=== PATIENT | male | born 1940 | race African-American/Black ===

== ENCOUNTER 2024-09-28 16:56 | Outpatient (CLI) | payer OTHER, SELFPAY ==
--- NOTE | ~2024-09-28 | US_ITS ---
EXAMINATION: US carotid duplex BI DATE: 09/28/2024 20:11 CDT INDICATION: History of stroke TECHNIQUE: Grayscale, color Doppler, and pulsed Doppler images of the cervical carotid arteries were obtained. The degree of vessel stenosis is placed in one of the following categories: normal, <50%, 50-69%, >=7 0% but less than near-occlusion, near-occlusion, or total occlusion. Note that percent stenosis relative to normal distal artery lumen diameter is indirectly measured fro m velocity measurements as described originally by Kulwant, et al. Radiology 2003; 229:340-346 and upda devonte by martínez Garcia al STROKE 2012;43(3);915-921. COMPARISON: 06/21/2016. FINDINGS: There is mild atherosclerosis of both carotid arteries. Peak systolic velocity (in cm/s) is detailed below RIGHT: Right common carotid artery (CCA): 60 cm/s. Right internal carotid artery (ICA) PSV: 57 cm/s. Right ICA end-diastolic velocity (EDV): 11 cm/s. Right ICA/CCA PSV ratio is 0.9. Right external carotid artery (ECA): 72cm/s. There is antegrade flow in the right vertebral artery. LEFT: Left common carotid artery (CCA): 54 cm/s. Left internal carotid artery (ICA) PSV: 105 cm/s. Left ICA end-diastolic velocity (EDV): 29 cm/s. Left ICA/CCA PSV ratio is 2. Left external carotid artery (ECA): 58cm/s. There is antegrade flow in the left vertebral artery. IMPRESSION: 1. Less than 50% stenosis in the right internal carotid artery. 2. 50-69% stenosis in the left internal carotid artery, an interval change from 2017 examination. Reviewed, dictated and finalized at location A.
--- OUTSIDE RECORDS SUMMARY | 2024-09-28 18:21 | XMS_ITS | Referral Summary ---
Author Organization [facility] at the [facility] Address [address] [place] [address] Care Team Providers Care Saxophone Player Name Role Phone Tai Valencia MD Unavailable [phone] London Bañuelos MD Unavailable [phone] Bessie Hwang MD Unavailable [phone] Rachid Keene MD Unavailable [phone] Debora Roman DO Primary Care Provider [phone] Kade Cortez MD Unavailable [phone] Allergies No known active allergies Medications aspirin 81 mg capsule Take 81 mg by mouth daily 8 Active atorvastatin (LIPITOR) 40 mg tablet Take 1 tablet (40 mg total) by mouth daily 1 Active cholecalciferol (VITAMIN D-3) 98336 unit tablet Take 1 capsule by mouth once a week 8 Active clopidogreL (PLAVIX) 75 mg tablet Take 1 tablet (75 mg total) by mouth daily [address] (CYMBALTA) 30 mg capsule Take 2 capsules (60 mg total) by mouth daily 1 Active ergocalciferol (VITAMIN D) 50,000 unit capsule Take 1 capsule (50,000 Units total) by mouth once a week 1 Active furosemide (LASIX) 40 mg tablet Take 1 tablet (40 mg total) by mouth 3 (three) times a week For 3 days take 80mg, there after 60mg 1 Active guaiFENesin (ROBITUSSIN) 400 mg tablet Take 1 tablet by mouth 3 (three) times a day Active HYDROcodone-acet aminophen (NORCO) 5-325 mg per tablet Take 1 tablet by mouth every 8 (eight) hours as needed 1 Active Lacto.acidophilu s-Bif.animalis 32 billion cell capsule Take 1 capsule by mouth daily Active meclizine (ANTIVERT) 25 mg tablet 1 Active melatonin 10 mg capsule 10 mg Active metoprolol XL (TOPROL-XL) 25 mg extended release tablet Take 1 tablet (25 mg total) by mouth daily 1 Active nitroglycerin (NITROSTAT) 0.4 mg SL tablet [address] (PROTONIX) 40 mg EC tablet Take by mouth 2 (two) times a day before breakfast and dinner 1 Active sennosides 25 mg tablet Take 2 tablets by mouth daily 8 Active sertraline (ZOLOFT) 100 mg tablet Take 1 tablet (100 mg total) by mouth daily 1 Active tamsulosin (FLOMAX) 0.4 mg extended release capsule 0.4 mg daily Active tolterodine LA (DETROL LA) 2 mg 24 hr capsule Take 1 capsule (2 mg total) by mouth daily 1 Active venlafaxine 150 mg tablet extended release 24hr 24 hr tablet 150 mg daily Active isosorbide mononitrate ER (IMDUR) 30 mg 24 hr tablet Take 1 tablet (30 mg total) by mouth every morning 2 Active Klor-Con M10 10 mEq CR tablet Take 1 tablet/capsule (10 mEq total) by mouth 2 Active QUEtiapine (SEROquel) 25 mg tablet Take 2 tablets (50 mg total) by mouth nightly 2 Active aspirin 81 mg enteric coated tablet Take 1 tablet (81 mg total) by mouth daily Active memantine (NAMENDA) 10 mg tablet Take 0.5 tablets (5 mg total) by mouth daily 3 Active albuterol HFA (PROVENTIL HFA,VENTOLIN HFA,PROAIR HFA) 90 mcg/actuation inhaler Inhale 2 puffs every 6 (six) hours as needed for wheezing Active Active Problems Problem Noted Date Diagnosed Date Hallucinations 05/12/2023 Obesity with body mass index 30 or greater 05/12 Rib pain 05/12/2023 Dementia with behavioral disturbance 09/09/2022 Generalized abdominal pain 01/28/2022 Atherosclerosis of [place] of both lower extremities with intermittent claudication 11/14/2021 Assessment & Plan (05/29/2023 2:22 PM FOUNTAIN BRUSH ASSEMBLER): Lower extremity edema has significantly improved with Tubigrip. Given a prescription for compression stockings 15-20 mmhg. Ulceration is mostly healed. Continue triple antibiotic ointment to the site and small bandage. Continue utilizing compression therapy. Arterial Doppler study is normal. Patient does not have any ischemic rest pain or claudication symptoms. Lower extremities are warm well perfused with palpable distal pulses. Plan: Continue utilizing compression therapy. Continue to follow-up with Podiatry as needed. Can follow-up with the vascular as needed. Assessment & Plan (05/14/2023 3:39 PM FOUNTAIN BRUSH ASSEMBLER): Patient continues to have paresthesia to bilateral feet right worse than the left along with 2+ pitting edema again right worse than the left. Does have evidence of chronic venous hypertension and chronic edema with hyperpigmentation to the right leg, blister to the right lateral calf and venous congestion noted to the foot. Blister unroofed dressing applied with Xeroform and gauze. Plan: Continue daily dressing changes with Xeroform gauze and use Tubigrip and Zeke wrap to both legs for compression. Follow-up in 2 weeks for a wound check as well as obtain an updated lower extremity arterial Doppler. Assessment & Plan (11/14/2021 3:06 PM CDT): Patient has developed symptoms consistent with disabling claudication and early ischemic rest pain right lower extremity. This been ongoing for greater than 4 months. I have recommended repeat arterial Doppler study follow-up 1 week. Continue exercise and ongoing risk factor modification. Deficiency of macronutrients 11/08/2021 Chronic constipation 11/07/2021 Impaired fasting glucose 11/07/2021 Moderately severe depression 11/07/2021 Spinal stenosis of lumbar region 11/07/2021 Chest pain 11/02/2021 POPE (dyspnea on exertion) 11/02/2021 Internal carotid artery stenosis 07/19/2021 Atherosclerosis of aorta 04/02/2021 Carcinoma of prostate 04/02/2021 Cervical radiculopathy 04/02/2021 Chronic diastolic heart failure 04/02/2021 Chronic obstructive pulmonary disease, unspecifi ed 04/02/2021 CVA, old, hemiparesis 04/02/2021 Hypertensive heart and chron ic kidney disease without heart failure, with stage 1 through stage 4 chronic kidney disease, or unspecified chronic kidney disease 04/02/2021 Hypertensive heart disease with congestive heart failure 04/02/2021 Postural dizziness 04/02/2021 Secondary hyperparathyroidism 04/02/2021 Vitamin D deficiency 04/02/2021 Prostate cancer 03/26/2021 Cancer Staging:Clinical stage from 02/14/2015:Stage IIC(cT1c, cN0, cM0, PSA: 5.3, Grade Group: 3) - Signed by Kade Cortez MD on 03/26/2021 Left flank pain 01/09/2021 MDD (major depressive disorder), recurrent episo de, severe 01/09/2021 Renal cyst 01/09/2021 Recurrent falls 09/14/2020 Other secondary pulmonary hypertension Memory impairment 05/09/2020 Dyslipidemia 12/22/2019 Assessment & Plan (11/14/2021 2:54 PM CDT): Dyslipidemia chronic and controlled. Continue statin therapy. Hemiplegia affecting left nondominant side 06/21 RBBB (right bundle branch block) 06/11/2019 Sinus tachycardia 06/11/2019 Abnormal EKG 03/10/2018 Abnormal gait 03/10/2018 Antiplatelet or antithrombotic long-term use 07/2017 Centrilobular emphysema 03/10/2018 Class 2 obesity due to exces s calories without serious comorbidity with body mass index (BMI) of 35.0 to 35.9 in adult 03/10/2018 Essential hypertension 03/10/2018 Assessment & Plan (11/14/2021 2:54 PM CDT): Hypertension chronic and controlled. Continue current medical management. Former smoker 03/10/2018 History of falling 03/10/2018 On statin therapy 03/10/2018 Use of cane as ambulatory aid 03/10/2018 Increased frequency of urination 08/20/2016 Benign prostatic hyperplasia 10/01/2012 Hyperlipidemia 10/01/2012 Orthostatic hypotension 10/01/2012 Retinal detachment 10/01/2012 Immunizations Immunization Administration Dates Next Due Influenza, Quadrivalent, Split, Intramuscular ,05/18/2015 Influenza, Quadrivalent, Spl it, Preservative Free, Intramuscular 05/19/2014 Influenza, Split 03/04/2013 Influenza, Trivalent, High D ose, Split, Preservative Free, Intramuscular 02/23/2020,07/20/2019 Influenza, Unspecified 02/23/2020 Moderna SARS-CoV-2 Monovalent Vaccination (12+ Y RS) 01/04/2022,04/13/2021 Pneumococcal Conjugate PCV 13 05/18/2015, 014 Pneumococcal Polysaccharide PPV23 03/26/2016 ZOSTER LIVE 07/05/2015 ZOSTER Recombinant 04/18/2023,02/04/2023 Social History Tobacco Use Types Packs/Day Years Used Date Smoking Tobacco: Former Tobacco Cessation:Counseling Given: Not Answered Personal Safety Answer Date Recorded Getting School Help Needed Not on file 08/12 Sex and Gender Information Value Date Recorded Sex Assigned at Not on file Legal Sex Male 7:42 PM FOUNTAIN BRUSH ASSEMBLER Gender Identity Not on file Sexual Orientation Not on file Last Filed Vital Signs Vital Sign Reading Time Taken Comments Blood Pressure 144/73 03/24/2024 2:13 PM CDT Pulse 73 03/24/2024 2:13 PM CDT Temperature 36.5 C (97.7 F) 06/30/2022 3:45 PM FOUNTAIN BRUSH ASSEMBLER Respiratory Rate 18 06/30/2022 7:00 PM FOUNTAIN BRUSH ASSEMBLER Oxygen Saturation 100% 03/24/2024 2:13 PM CDT Inhaled Oxygen Concentration - - Weight 81.6 kg (180 lb) 05/28/2023 2:56 PM FOUNTAIN BRUSH ASSEMBLER Height 167.6 cm (5' 6 ) 05/28/2023 2:56 PM FOUNTAIN BRUSH ASSEMBLER Body Mass Index 29.05 05/28/2023 2:56 PM FOUNTAIN BRUSH ASSEMBLER Plan of Treatment Not on file Insurance [facility] Care Teams Saxophone Player Relationship Specialty Start Date End Date Debora Roman DO [address] [place] [address] PCP - General Internal Medicine 04/16/23 Tai Valencia MD [address] [address] Cardiovascular Disease 03/26/21 London Bañuelos MD [address] [address] Neurology 03/26/21 Bessie Hwang MD [address] [address] Gastroenterology 03/26/21 Rachid Keene MD [address] [place] [address] Consulting Physician Urology 03/26/21 Kade Cortez MD [address] [place] [address] Radiation Oncologist Radiation Oncology 02/03/24
--- OUTSIDE RECORDS SUMMARY | 2024-09-28 18:21 | XMS_ITS | Clinical Summary ---
Author Organization [facility] at the [facility] Address [address] [place] [address] Care Team Providers Care Metal Mockup Maker Name Role Phone Tai Valencia MD Unavailable [phone] London Bañuelos MD Unavailable [phone] Bessie Hwang MD Unavailable [phone] Rachid Keene MD Unavailable [phone] Debora Roman DO Primary Care Provider [phone] Kade Cortez MD Unavailable [phone] Allergies No known active allergies Medications aspirin 81 mg capsule Take 81 mg by mouth daily 8 Active atorvastatin (LIPITOR) 40 mg tablet Take 1 tablet (40 mg total) by mouth daily 1 Active cholecalciferol (VITAMIN D-3) 83765 unit tablet Take 1 capsule by mouth [...] 09/09/2022 Generalized abdominal pain 01/28/2022 Atherosclerosis of [place] ar kate of both lower extremities with intermittent claudication 11/14/2021 Assessment & Plan (05/29/2023 2:22 PM CURRICULUM SPECIALIST): Lower extremity edema has significantly improved with [...] needed. Assessment & Plan (05/14/2023 3:39 PM CURRICULUM SPECIALIST): Patient continues to have paresthesia to bilateral [...] 03/26/2016 ZOSTER LIVE 07/05/2015 ZOSTER Recombinant 04/18/2023,02/04/2023 Surgical History Surgery Date Site/Laterality Comments APPENDECTOMY PROSTATE SURGERY UroLift Medical History Medical History Date Comments HTN (hypertension) Dyslipidemia Hyperlipidemia Heart disease CKD (chronic kidney disease) Secondary hyperparathyroidism Vitamin D deficiency Prostate cancer (HCC) Depression COPD (chronic obstructive pulmonary disease) (HC C) Chronic diastolic heart failure (HCC) Family History Medical History Relation Name Comments Heart attack Father Prostate cancer Father Stroke Father Stroke Mother Relation Name Status Comments Father Mother Social History Tobacco Use Types Packs/Day Years Used Date Smoking Tobacco: Former Tobacco Cessation:Counseling Given: Not Answered Personal Safety Answer Date Recorded Getting School Help Needed Not on file 08/12 Sex and Gender Information Value Date Recorded Sex Assigned at Not on file Legal Sex Male 7:42 PM CURRICULUM SPECIALIST Gender Identity Not on file Sexual Orientation Not on file Obstetrics History Last Filed Vital Signs Vital Sign Reading Time Taken Comments Blood Pressure 144/73 03/24/2024 2:13 PM CDT Pulse 73 03/24/2024 2:13 PM CDT Temperature 36.5 C (97.7 F) 06/30/2022 3:45 PM CURRICULUM SPECIALIST Respiratory Rate 18 06/30/2022 7:00 PM CURRICULUM SPECIALIST Oxygen Saturation 100% 03/24/2024 2:13 PM CDT Inhaled Oxygen Concentration - - Weight 81.6 kg (180 lb) 05/28/2023 2:56 PM CURRICULUM SPECIALIST Height 167.6 cm (5' 6 ) 05/28/2023 2:56 PM CURRICULUM SPECIALIST Body Mass Index 29.05 05/28/2023 2:56 PM CURRICULUM SPECIALIST Plan of Treatment Health Maintenance Due Date Last Done Comments Depression Screening 1938 Fall Risk Assessment 1940 DTaP/Tdap/Td Vaccine (1 - Tdap) 1949 Hepatitis B Screening 1956 Well Visit 65+ 10/26/2003 Covid-19 Vaccine (2023-2 5 season) 2024 01/04/2022, 04/13/2021, 08/11/2020, Additional history exists Influenza Vaccine (#1) 2024 0, 02/23/2020, 07/20/2019, Additional history exists Pneumococcal vaccine 65+ Completed 016, 05/18/2015, 05/19/2014 Zoster Vaccine Completed 04/18/2023, 01/08, 07/05/2015 Insurance [facility] Care Teams Metal Mockup Maker Relationship Specialty Start Date End Date Debora Roman DO [address] [place] [address] PCP - General Internal Medicine 04/16/23 Tai Valencia MD [address] [address] Cardiovascular Disease 03/26/21 London Bañuelos MD [address] [place] [id number] Neurology 03/26/21 Bessie Hwang MD [address] [place] [address] Gastroenterology 03/26/21 Rachid Keene MD [address] [place] [address] Consulting Physician Urology 03/26/21 Kade Cortez MD [address] [place] [address] Radiation Oncologist Radiation Oncology 02/03/24
--- OUTSIDE RECORDS SUMMARY | 2024-09-28 18:22 | XMS_ITS | Encounter Summary ---
Author Organization [facility] Address [facility] [place] [address] Care Team Providers Care Furniture Sprayer Name Role Phone Debora Roman DO Primary Care Provider [phone] Mono Miller MD Unavailable [phone] Tai Valencia MD Unavailable [phone] Encounter Details Date Type Department Care Team (Late Contact Info) Description 03/24/2018 Abstract [facility] at [address] [phone] Willow Valencia MA Social History Tobacco Use Types Packs/Day Years Used Date Smoking Tobacco: Former Cigarettes Q uit: 06/2016 Smokeless Tobacco: Never Alcohol Use Standard Drinks/Week Comments No 0 (1 standard drink = 0.6 oz pur e alcohol) AUDIT-C Answer Date Recorded Frequency of Alcohol Consumption Never 03/09/2018 Average Number of Drinks Not on file 018 Frequency of Binge Drinking Not on file 06/2017 Sex and Gender Information Value Date Recorded Sex Assigned at Male 08/18/2024 1:59 PM CDT Legal Sex Male 4:09 PM CDT Gender Identity Not on file Sexual Orientation Not on file 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 Not on file Not on file documented as of this encounter Plan of Treatment Upcoming Encounters Date Type Department Care Team (Late Contact Info) Description 05/23/2025 2:00 PM WATERSHED ENGINEER Office Visit [facility], [address] [address] Brandi Ignacio, PERSONAL PROPERTY ASSESSOR [address] [place] [address] documented as of this encounter Procedures Procedure Name Priority Date/Time Associated Diagnosis Comments COMPREHENSIVE METABOLIC PANEL Routine 07/20/2024 LIPID PANEL Routine 07/20/2024 HEMOGLOBIN, GLYCOSYLATED Routine 07/20/2024 THYROID STIM HORMONE TSH Routine 07/20/2024 HEMOGLOBIN, GLYCOSYLATED Routine 12/15/2023 COMPREHENSIVE METABOLIC PANEL Routine 12/15/2023 CBC, MANUAL DIFF Routine 12/15/2023 THYROID STIM HORMONE TSH Routine 12/15/2023 CK (CPK) Routine 12/15/2023 BASIC METABOLIC PANEL Routine 05/21/2023 BASIC METABOLIC PANEL Routine 05/14/2023 PRO-BRAIN NATRIURETIC PEPTIDE Routine 03/17/2023 COMPREHENSIVE METABOLIC PANEL Routine 03/17/2023 CBC, MANUAL DIFF Routine 03/17/2023 HEMOGLOBIN, GLYCOSYLATED Routine 01/28/2022 COMPREHENSIVE METABOLIC PANEL Routine 01/28/2022 LIPID PANEL Routine 01/28/2022 CBC, MANUAL DIFF Routine 01/28/2022 THYROID STIM HORMONE TSH Routine 01/28/2022 CBC (OUTSIDE LAB) Routine 08/28/2017 COMPREHENSIVE METABOLIC PANEL Routine 08/28/2017 LIPID PANEL Routine 08/28/2017 documented in this encounter Results * COMPREHENSIVE METABOLIC PANEL (07/20/2024) SODIUM S/P/B 141 POTASSIUM S/P/B 5.1 CO2 25 CHLORIDE S/P/B 108 GLUCOSE 94 mg/dL CALCIUM S/P/B 9.8 BUN 16 CREATININE S/P/B 1.18 0.7 - 1.3 GFR ESTIMATE 60 ALKALINE PHOSPHATASE S/P/B 61 ALT 53 AST 60 BILIRUBIN TOTAL S/P/B 0.6 ALBUMIN S/P/B 4.6 3.5 - 5.0 TOTAL PROTEIN S/P/B 7.5 GLOBULIN 2.9 07/20/2024 Default History Genericprovider LABORATORY Edited Result - Final * HEMOGLOBIN, GLYCOSYLATED (07/20/2024) HGB A1C 5.9 % 07/20/2024 Default History Genericprovider LABORATORY Edited Result - Final * LIPID PANEL (07/20/2024) CHOLESTEROL 131 HDL 42 TRIGLYCERIDES 159 LDL (CALCULATED) 57 07/20/2024 Default History Genericprovider LABORATORY Edited Result - Final * THYROID STIM HORMONE TSH (07/20/2024) TSH 1.64 Default History Genericprovider LABORATORY Final Result * THYROID STIM HORMONE TSH (12/15/2023) TSH 1.81 Default History Genericprovider LABORATORY Edited Result - Final * CK (CPK) (12/15/2023) CPK 67 12/15/2023 Default History Genericprovider LABORATORY Final Result * COMPREHENSIVE METABOLIC PANEL (12/15/2023) SODIUM S/P/B 139 GLUCOSE 91 mg/dL BUN 19 CREATININE S/P/B 1.04 0.7 - 1.3 CALCIUM S/P/B 10.0 CHLORIDE S/P/B 109 GFR ESTIMATE 70 Critical access hospital Genericprovider LABORATORY Edited Result - Final * CBC, MANUAL DIFF (12/15/2023) WBC 9.73 HGB 15.7 HCT 51.6 PLT 208 Critical access hospital Genericprovider LABORATORY Edited Result - Final * HEMOGLOBIN, GLYCOSYLATED (12/15/2023) Pathologist [facility] HGB A1C 6.7 % Critical access hospital Genericprovider LABORATORY Edited Result - Final * BASIC METABOLIC PANEL (05/21/2023) SODIUM S/P/B 142 POTASSIUM S/P/B 3.5 CO2 22 CHLORIDE S/P/B 106 GLUCOSE 117 mg/dL CALCIUM S/P/B 8.5 BUN 11 CREATININE S/P/B 0.97 0.7 - 1.3 EGFR NON-AFR. AMER. 77 <=90 05/21/2023 Default History Genericprovider LABORATORY Final Result * BASIC METABOLIC PANEL (05/14/2023) SODIUM S/P/B 140 POTASSIUM S/P/B 3.5 CO2 24 CHLORIDE S/P/B 102 GLUCOSE 100 mg/dL CALCIUM S/P/B 9.5 BUN 11 CREATININE S/P/B 1.0 0.7 - 1.3 EGFR AFR. AMER. 74 <=90 05/14/2023 Default History Genericprovider LABORATORY Final Result * COMPREHENSIVE METABOLIC PANEL (03/17/2023) SODIUM S/P/B 143 GLUCOSE 102 mg/dL AST 61 BUN 15 CREATININE S/P/B 1.11 0.7 - 1.3 CALCIUM S/P/B 10.1 POTASSIUM S/P/B 4.0 CHLORIDE S/P/B 102 ALT 59 GFR ESTIMATE 65 Narrative Resulting Agency Comment Critical access hospital Genericprovider LABORATORY Edited Result - Final * PRO-BRAIN NATRIURETIC PEPTIDE (03/17/2023) Pathologist [facility] PRO-B TYPE NATRIURETIC PEPTIDE 5,920 Narrative Resulting Agency Comment Result [facility] Genericprovider LABORATORY Edited Result - Final * CBC, MANUAL DIFF (03/17/2023) Pathologist [facility] WBC 8.89 HGB 16.6 HCT 56.2 PLT 226 Narrative Resulting Agency Comment Critical access hospital Genericprovider LABORATORY Edited Result - Final * COMPREHENSIVE METABOLIC PANEL (01/28/2022) Pathologist [facility] SODIUM S/P/B 139 GLUCOSE 88 mg/dL AST 43 BUN 14 CREATININE S/P/B 1.05 0.7 - 1.3 CALCIUM S/P/B 10.1 POTASSIUM S/P/B 4.0 CHLORIDE S/P/B 101 ALT 27 GFR ESTIMATE 70 Default History Genericprovider LABORATORY Final Result * LIPID PANEL (01/28/2022) Pathologist [facility] CHOLESTEROL 137 TRIGLYCERIDES 160 HDL 38 LDL (CALCULATED) 67 Default History Genericprovider LABORATORY Final Result * CBC, MANUAL DIFF (01/28/2022) Pathologist [facility] WBC 7.99 HGB 15.4 HCT 49.5 PLT 247 Default History Genericprovider LABORATORY Final Result * HEMOGLOBIN, GLYCOSYLATED (01/28/2022) Pathologist [facility] HGB A1C 8.1 % us Default History Genericprovider LABORATORY Final Result * THYROID STIM HORMONE TSH (01/28/2022) [facility] TSH 2.13 us Default History Genericprovider LABORATORY Final Result * LIPID PANEL (08/28/2017) [facility] CHOLESTEROL 117 HDL 31 TRIGLYCERIDES 125 LDL (CALCULATED) 61 08/28/2017 us Doc [facility] LABORATORY Final Result * (ABNORMAL) COMPREHENSIVE METABOLIC PANEL (08/28/2017) [facility] SODIUM S/P/B 142 POTASSIUM S/P/B 3.9 CO2 24 CHLORIDE S/P/B 105 GLUCOSE 102 mg/dL CALCIUM S/P/B 9.0 BUN 14 CREATININE S/P/B 1.5(A) 0.7 - 1.3 EGFR NON-AFR. AMER. 58 <=90 ALKALINE PHOSPHATASE S/P/B 63 ALT 29 AST 23 BILIRUBIN TOTAL S/P/B 0.3 ALBUMIN S/P/B 4.2 3.5 - 5.0 TOTAL PROTEIN S/P/B 6.6 08/28/2017 us Doc [facility]ORAT[facility] Final Result * CBC (OUTSIDE LAB) (08/28/2017) [facility] WBC 7.4 HGB 13.9 HCT 42.2 PLT 214 08/28/2017 us Doc [facility] LAB-OUTSIDE/ABSTRACTED Final Result documented in this encounter Visit Diagnoses Not on filedocumented in this encounter Care Teams Furniture Sprayer Relationship Specialty Start Date End Date Debora Roman DO [address] [place] [address] PCP - General INTERNAL MEDICINE 02/18/18 Mono Miller MD [address] [place] [id number] [facility] CARDIOVASCULAR DISEASE 02/26/18 03/30/19 Tai Valencia MD Three [facility]. [address] [place] [address] [facility] [employer] CARDIOVASCULAR DISEASE 06/09/19 documented as of this encounter
--- OUTSIDE RECORDS SUMMARY | 2024-09-28 18:22 | XMS_ITS | Continuity of Care Document ---
Author Organization [facility] Address [address] [place] [address] Phone Care Team Providers Care Assistive Technology Specialist Name Role Phone Debora Roman DO Unavailable Unavailable Allergies, Adverse Reactions, Alerts Substance Reaction Status Criticality No Known Drug Allergies Other Active No I nformation Medications Medication Instructions Dosage Effective Dates (start - stop) Status Comments hydrocodone 5 mg-acetaminophen 325 mg tablet take 1 tablet every 8 hours as needed - Active M48.[address] 30 MG CAP TAKE 2 CAPSULES BY MOUTH EVERY DAY - Active donepezil 5 mg tablet take 1 tablet by oral route every day in the evening 5 MG - Active Gemtesa 75 mg tablet take 1 tablet by oral route every day 75 MG - Active furosemide 20 mg tablet take 1 tablet by oral route every day 20 MG - Active potassium chloride ER 20 mEq tablet,extended release(part/cryst) take 1 tablet by oral route 2 times every day with food 20 MEQ - Active metoprolol succinate ER 25 mg tablet,extended release 24 hr TAKE 1 TABLET BY MOUTH EVERY DAY at bedtime - Active PANTOPRAZOLE SOD DR 40 MG TAB TAKE 1 TABLET TWICE A DAY BEFORE MEALS - Active ATORVASTATIN 40 MG TABLET TAKE 1 TABLET BY MOUTH EVERY DAY - Active SERTRALINE HCL 100 MG TABLET TAKE 1 TABLET BY MOUTH EVERY DAY - Active VITAMIN D2 1.25MG(50,000 UNIT) TAKE 1 CAPSULE BY MOUTH ONCE PER WEEK - Active QUETIAPINE FUMARATE 25 MG TAB TAKE 1-2 TABLETS BY MOUTH EVERY 8 HOURS NEEDED FOR AGITATION OR SLEEP - Active memantine 10 mg tablet take 1/2 tablet by oral route daily - Active nitroglycerin 0.[address] 1 tablet by sublingual route at 1st sign of attack; may repeat every 5 minutes up to 3 tabs; if norelief seek medical help 0.4 MG - Active Aspirin Low Dose 81 mg tablet,delayed release take 1 tablet by oral route every day 81 MG - Active clopidogrel 75 mg tablet take 1 tablet by oral route every day 75 MG - Active ProAir HFA 90 mcg/actuation aerosol inhaler inhale 2 puff by inhalation route every 4 - 6 hours as needed - Active Mucinex DM 30 mg-600 mg tablet,extended release 12 hr take 1 tablet by oral route every 12 hours as needed as needed for congestion 1.00 tablet - Active Probiotic 10 billion cell capsule spray 1 Capsule by Oral route every day 1 Capsule - Active Laxative (sennosides) 25 mg tablet take 1 tablet by oral route 2 times every day as needed 25 MG - Active Procedures Procedure Date ROUTINE VENIPUNCTURE AR OFFICE [id number] BODY MASS INDEX DOCD SYST BP GE 130 - 139MM HG DIAST BP 80-89 MM HG COMPREHEN METABOLIC PANEL CMP HEMOGLOBIN A1C HGA1C, GLYCO LIPID PANEL MICROALBUMIN, QN (URINE) CREATININE, (U-R) PARATHYROID HORMONE (PTH) THYROID STIMULATION HORMONE(TSH) 2024 URINALYSIS, REFLEX (UA) CBC, INC PLATELETS AND DIFFERENTIAL COMPREHEN METABOLIC PANEL CMP HEMOGLOBIN A1C HGA1C, GLYCO LIPID PANEL Admin influenza virus vac FLU VACC PRSV FREE INC ANTIG PNEUMOVAX ADM MEDICARE Pneumococcal Conjugate Vaccine (PCV20) S ROUTINE VENIPUNCTURE AR OFFICE [id number] BODY MASS INDEX DOCD SYST BP LT 130 MM HG DIAST BP < 80 MM HG BASIC METABOLIC PANEL(BMP) ROUTINE VENIPUNCTURE AR COMPREHEN METABOLIC PANEL CMP ROUTINE VENIPUNCTURE AR CBC, INC PLATELETS AND DIFFERENTIAL COMPREHEN METABOLIC PANEL CMP CREATINE KINASE, TOTAL (CPK,CK) 024 HEMOGLOBIN A1C HGA1C, GLYCO THYROID STIMULATION HORMONE(TSH) 2023 ROUTINE VENIPUNCTURE AR OFFICE [id number]-[id number] BODY MASS INDEX DOCD SYST BP LT 130 MM HG DIAST BP < 80 MM HG Pt inelig neg scrn depres OFFICE KZNRI-MRK-YAKFMWFF BODY MASS INDEX DOCD SYST BP LT 130 MM HG DIAST BP < 80 MM HG COMPREHEN METABOLIC PANEL CMP 3 Kept Appointment No Charge Encounter Mar ROUTINE VENIPUNCTURE AR CBC, INC PLATELETS AND DIFFERENTIAL COMPREHEN METABOLIC PANEL CMP 3 BRAIN NATRIURETIC PEPTIDE (BNP) 023 ROUTINE VENIPUNCTURE AR OFFICE [id number] BODY MASS INDEX DOCD SYST BP GE 130 - 139MM HG DIAST BP < 80 MM HG CBC, INC PLATELETS AND DIFFERENTIAL COMPREHEN METABOLIC PANEL CMP 3 HEMOGLOBIN A1C HGA1C, GLYCO BRAIN NATRIURETIC PEPTIDE (BNP) 023 THYROID STIMULATION HORMONE(TSH) 2022 Admin influenza virus vac FLU VACC PRSV FREE INC ANTIG ROUTINE VENIPUNCTURE IL OFFICE [id number]-XHH-[id number] BODY MASS INDEX DOCD SYST BP LT 130 MM HG DIAST BP 80-89 MM HG Pt inelig neg scrn depres OFFICE VPWJY-RPV-CDNOAXKA BODY MASS INDEX DOCD SYST BP LT 130 MM HG DIAST BP < 80 MM HG CBC, INC PLATELETS AND DIFFERENTIAL COMPREHEN METABOLIC PANEL [facility] 3 HEMOGLOBIN A1C HGA1C, GLYCO PARATHYROID HORMONE (PTH) THYROID STIMULATION HORMONE(TSH) 2022 VITAMIN B12 (SERUM) VITAMIN D, 25-HYDROXY Depression screen annual Clin depression screen doc ROUTINE VENIPUNCTURE [place] OFFICE MCUPO-LQR-EEUCSNVO BODY MASS INDEX DOCD SYST BP LT 130 MM HG DIAST BP < 80 MM HG TELEPHONE E&M SERVICE BY A PHYSICIAN;5-1 0 MINUTES OF MEDICAL DISCUSSION X-RAY EXAM OF RIBS, UNILATERAL, 2 VIEWS OFFICE JWSED-TYN-UPAMFCMA BODY MASS INDEX DOCD SYST BP LT 130 MM HG DIAST BP < 80 MM HG Tubular Dressing Size F MOUTHPIECE INHALATION TREATMENT/THERAPY SPIROMETRY BEFORE & AFTER BRONCHODIALATO R ALBUTEROL 2.5 MG AND IPRATROPIUM BROMIDE .5 MG FORM CHARGE AMYLASE CBC, INC PLATELETS AND DIFFERENTIAL COMPREHEN METABOLIC PANEL CMP CREATINE KINASE, TOTAL (CPK,CK) 022 HEMOGLOBIN A1C HGA1C, GLYCO LIPASE LIPID PANEL RBC SED RATE, AUTOMATED THYROID STIMULATION HORMONE(TSH) 2021 ROUTINE VENIPUNCTURE OFFICE [id number]-IGH-[id number] BODY MASS INDEX DOCD SYST BP LT 130 MM HG DIAST BP 80-89 MM HG FALL RISK ASSESSMENT DOC'D PRES/ABSN URINE INCON ASSESS OFFICE PXHUF-EJA-[id number] BODY MASS INDEX DOCD SYST BP GE 130 - 139MM HG DIAST BP 80-89 MM HG Depression screen annual Clin depression screen doc Brief Emotional/Behavioral A ssessment, With Scoring/Doct, Per St[employer] Instrument CBC, INC PLATELETS AND DIFFERENTIAL COMPREHEN METABOLIC PANEL CMP THYROID STIMULATION HORMONE(TSH) 2021 ROUTINE VENIPUNCTURE OFFICE OJCYO-CUM-NUDNEGUA BODY MASS INDEX DOCD SYST BP LT 130 MM HG DIAST BP < 80 MM HG FORM CHARGE CBC, INC PLATELETS AND DIFFERENTIAL COMPREHEN METABOLIC PANEL CMP 2 LIPID PANEL PARATHYROID HORMONE (PTH) THYROID STIMULATION HORMONE(TSH) 2021 VITAMIN B12 (SERUM) VITAMIN D, 25-HYDROXY ROUTINE VENIPUNCTURE Depression screen annual Clin depression screen doc URINALYSIS W MICROSCOPIC (UA) 2 OFFICE JQNKV-PYH-MYILJHCK BODY MASS INDEX DOCD SYST BP GE 130 - 139MM HG DIAST BP < 80 MM HG URINALYSIS, REFLEX (UA) OFFICE IMXAX-HCT-KIXKJUMX BODY MASS INDEX DOCD SYST BP GE 130 - 139MM HG DIAST BP < 80 MM HG FALL RISK ASSESSMENT DOC'D PRES/ABSN URINE INCON ASSESS Depression screen annual Clin depression screen doc Brief Emotional/Behavioral A ssessment, With Scoring/Doct, [facility] CBC, INC PLATELETS AND DIFFERENTIAL COMPREHEN METABOLIC PANEL [facility] 1 CREATINE KINASE, TOTAL (CPK,CK) 021 RBC SED RATE, AUTOMATED THYROID STIMULATION HORMONE(TSH) 2020 ROUTINE VENIPUNCTURE OFFICE [id number]-MLX-[id number] BODY MASS INDEX [facility] SYST BP LT 130 MM HG DIAST BP < 80 MM HG X-RAY EXAM OF RIBS, UNILATERAL, 2 VIEWS OFFICE FXOIG-RBA-NSOKKRM OFFICE MWHVB-CAM-AYTCPEDJ BODY MASS INDEX [facility] SYST BP LT 130 MM HG DIAST BP < 80 MM HG X-RAY EXAM OF KNEE, A/P & LAT X-RAY EXAM OF LUMBAR SPINE, A/P & LAT Ap X-RAY EXAM OF THORACIC SPINE, A/P AND LA T COMPREHEN METABOLIC PANEL [facility] 1 CREATINE KINASE, TOTAL (CPK,CK) 021 ROUTINE VENIPUNCTURE Depression screen annual Clin depression screen doc CBC, INC PLATELETS AND DIFFERENTIAL COMPREHEN METABOLIC PANEL CMP CREATINE KINASE, TOTAL (CPK,CK) 021 HEMOGLOBIN A1C HGA1C, GLYCO LIPID PANEL PARATHYROID HORMONE (PTH) RBC SED RATE, AUTOMATED THYROID STIMULATION HORMONE(TSH) 2020 VITAMIN D, 25-HYDROXY ROUTINE VENIPUNCTURE OFFICE QJPNE-ODM-[id number] BODY MASS INDEX DOCD SYST BP LT 130 MM HG DIAST BP < 80 MM HG Pt inelig neg scrn depres CBC, INC PLATELETS AND DIFFERENTIAL COMPREHEN METABOLIC PANEL CMP 0 LIPID PANEL THYROID STIMULATION HORMONE(TSH) 2019 URINALYSIS, REFLEX (UA) VITAMIN B12 (SERUM) ROUTINE VENIPUNCTURE OFFICE DGCPI-SKX-[id number] BODY MASS INDEX DOCD SYST BP GE 130 - 139MM HG DIAST BP < 80 MM HG CBC, INC PLATELETS AND DIFFERENTIAL COMPREHEN METABOLIC PANEL CMP 0 ROUTINE VENIPUNCTURE Admin influenza virus vac FLU VACC PRSV FREE INC ANTIG HEMOGLOBIN A1C HGA1C, GLYCO OFFICE ZPEHS-THR-TEEQQNQC BODY MASS INDEX DOCD SYST BP LT 130 MM HG DIAST BP < 80 MM HG Depression screen annual Clin depression screen doc CBC, INC PLATELETS AND DIFFERENTIAL COMPREHEN METABOLIC PANEL CMP 0 CREATINE KINASE, TOTAL (CPK,CK) 020 LIPID PANEL THYROID STIMULATION HORMONE(TSH) 2019 ROUTINE VENIPUNCTURE OFFICE WIBPI-ZBM-RLOLUNGZ BODY MASS INDEX DOCD SYST BP GE 130 - 139MM HG DIAST BP 80-89 MM HG Chest Xray, 2 Views FALL RISK ASSESSMENT DOC'D PRES/ABSN URINE INCON ASSESS Chest Xray, 2 Views CBC, INC PLATELETS AND DIFFERENTIAL COMPREHEN METABOLIC PANEL CMP 0 THYROID STIMULATION HORMONE(TSH) 2019 ROUTINE VENIPUNCTURE Pt inelig neg scrn depres OFFICE TOCQU-OZV-ELEAKPFB BODY MASS INDEX DOCD SYST BP GE 130 - 139MM HG DIAST BP < 80 MM HG OFFICE [id number]-[id number]-[id number] BODY MASS INDEX DOCD SYST BP LT 130 MM HG DIAST BP < 80 MM HG Chest Xray, 2 Views FALL PLAN OF CARE DOC'D URINE INCON PLAN DOC'D PRES/ABSN URINE INCON ASSESS Depression screen annual Clin depression screen doc CBC, INC PLATELETS AND DIFFERENTIAL COMPREHEN METABOLIC PANEL CMP 0 CREATINE KINASE, TOTAL (CPK,CK) 020 LIPID PANEL PARATHYROID HORMONE (PTH) THYROID STIMULATION HORMONE(TSH) 2019 VITAMIN D, 25-HYDROXY ROUTINE VENIPUNCTURE OFFICE SGACC-CHE-PNUMNILI BODY MASS INDEX DOCD SYST BP GE 130 - 139MM HG DIAST BP < 80 MM HG Chest Xray, 2 Views AMYLASE CBC, INC PLATELETS AND DIFFERENTIAL COMPREHEN METABOLIC PANEL CMP 9 LIPASE LIPID PANEL PARATHYROID HORMONE (PTH) THYROID STIMULATION HORMONE(TSH) 2018 URINALYSIS, REFLEX (UA) VITAMIN D, 25-HYDROXY ROUTINE VENIPUNCTURE HEMOGLOBIN A1C HGA1C, GLYCO OFFICE NBCPG-RPI-SNBRAYWB BODY MASS INDEX DOCD SYST BP GE 130 - 139MM HG DIAST BP < 80 MM HG OFFICE OLPFS-VRJ-WHPCGIJD BODY MASS INDEX DOCD SYST BP LT 130 MM HG DIAST BP < 80 MM HG Depression screen annual Clin depression screen doc CBC, INC PLATELETS AND DIFFERENTIAL COMPREHEN METABOLIC PANEL [facility] 9 FERRITIN LEVEL IRON (FE), TOTAL TIBC, & % SATURATION THYROID STIMULATION HORMONE(TSH) 2018 ROUTINE VENIPUNCTURE OFFICE IBICP-XJP-HZMEUFFT BODY MASS INDEX DOCD SYST BP LT 130 MM HG DIAST BP < 80 MM HG FECAL GLOBULIN (FOBT) Depression screen annual Clin depression screen doc CBC, INC PLATELETS AND DIFFERENTIAL COMPREHEN METABOLIC PANEL [facility] 9 ROUTINE VENIPUNCTURE OFFICE VSMVU-IGW-FSKXSMPP BODY MASS INDEX DOCD SYST BP LT 130 MM HG DIAST BP < 80 MM HG CBC, INC PLATELETS AND DIFFERENTIAL COMPREHEN METABOLIC PANEL [facility] 9 CREATINE KINASE, TOTAL (CPK,CK) 019 THYROID STIMULATION HORMONE(TSH) 2018 ROUTINE VENIPUNCTURE OFFICE OCUPX-MZT-IKMDDWMO BODY MASS INDEX DOCD SYST BP LT 130 MM HG DIAST BP < 80 MM HG URINALYSIS, DIPSTICK (UA) - Office Lab J OFFICE OZUNU-JCO-HQTSBDX Advance Directives Directive Yes / No Effective Date File Name No Information Encounters Encounter Description Practice Location Reason(s) For Visit Diagnoses Date Provider Providers Copied on Encounter [facility], [address], [place], [place], [address] , tel: [phone] [facility] No Information 5 Abel Bartha. [address] [place] [address], [id number], [place]. tel:[phone] [facility], [address], [place], [place], [address] , tel: [phone] [facility] No Information 0- 5 Ruston Debora. [address], [place], [id number], [place]. tel:[phone] [facility], [address], [place], [place], [address] , tel: [phone] [facility] No Information 5 Abel Debora. [address] [place] [address], [id number], [place]. tel:[phone] OFFICE LKMRZ-HOE-JQ TAILED [facility], [address], [place], [place], [address] , tel: [phone] [facility] 4 month check up (chief complaint)c hronic conditions (chief complaint)C hronic Conditions (chief complaint) Body mass index [BMI] 28.0-28.9, adultHypertens km heart and 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 failure, with stage 1 through stage 4 chronic kidney disease, or unspecified chronic kidney diseaseType 2 diabetes mellitus with other circulatory complicationsC hronic diastolic (congestive) heart failureChronic kidney disease, stage 3aChronic obstructive pulmonary disease, unspecifiedDem entia in other diseases classified elsewhere, unspecified severity, with other behavioral disturbanceHem iplegia and hemiparesis following cerebral infarction affecting right dominant sideMajor depressive disorder, single episode, severe without psychotic featuresAthero sclerosis of aortaOther secondary pulmonary hypertensionSe condary hyperparathyro idism, not elsewhere classifiedCons tipation, unspecified 5 Chucho Angulo. [address] [place] [address], [id number], [place]. tel:[phone] Tai Valencia.Ref erring Provider: Debora Lara, [address] [place] [address], [address] . tel:[phone] [facility], [address], [place], [place], [address] , tel: [phone] [facility] No Information 5 Mykel Smith. [address] [place] [address], [id number], [place]. [phone] Referring Provider: Adele Rankin, [address] [place] [address], [address] . tel:[phone] [facility], [address], [place], [place], [address] , tel: [phone] [facility] No Information 4 Abel Cazares. [address] [place] [address], [id number], [place]. tel:[phone] [facility], [address], [place], [place], [address] , tel: [phone] [facility] No Information 4 Mykel Smith. [address], [id number], [place]. [phone] Referring Provider: Robinson Burton, [address] [place] [address], [address]. tel:[phone] OFFICE TTCKQ-AFR-PM [facility], [address], [place], [place], [address] , [facility]: [phone] [facility] (chief complaint)C hronic Conditions (chief complaint)c hronic conditions (chief complaint) Body mass index [BMI] 27.0-27.9, adultDementia in other diseases classified elsewhere, unspecified severity, with other behavioral disturbanceTyp e 2 diabetes mellitus with other circulatory complicationsH ypertensive heart disease with heart failureChronic diastolic (congestive) heart failureHyperli pidemia, unspecifiedUns pecified protein-calori e malnutritionSp inal stenosis, lumbar region without neurogenic claudicationHe miplegia and hemiparesis following cerebral infarction affecting right dominant sideLeft ear impacted cerumenAbdomin al pain, unspecified abdominal location Sep-06 10- 4 Micheal Bowers. [address] [place] [address], [address], [place]. [phone] Tai Valencia.Ref erring Provider: Debora Lara, [address] [place] [address], [address] . tel:[phone] [facility], [address], [place], [place], [address] , tel: [phone] [facility] No Information 4 Abel Cazares. [address] [place] [address], [id number], [place]. [phone] [facility], [address], [place], [place], [address] , [place] tel: [phone] [facility] No Information 4 Aebl Cazares. [address] [place] [address], [id number], [place]. [phone] [facility], [address], [place], [place], [address] , [place] tel: [phone] [facility] No Information 4 Abel Cazares. [address] [place] [address], [id number], [place]. tel:[phone] [facility], [address], [place], [place], [address] , [place] tel: [phone] [facility] No Information 4 Mykel Riversn. [address], [id number], . tel:[phone] Referring Provider: Debora Lara, [address] [place] [address], [address] . tel:[phone] [facility], [address], [place], [place], [address] , tel: [phone] [facility] Hypertensive heart disease with heart failureChronic diastolic (congestive) heart failureOther secondary pulmonary hypertension 4 Abel Cazares. [address] [place] [address], [id number], [place]. tel:[phone] Tai Valencia.Ref erring Provider: Debora Lara, [address] [place] [address], [address] . tel:[phone] [facility], [address], [place], [place], [address] , [place] tel: [phone] [facility] No Information 4 Abel Cazares. [address] [place] [address], [id number], [place]. tel:[phone] [facility], [address], [place], [address] , [place] tel: [phone] [facility] No Information 4 Mykel Luis. [address], [id number], [place]. tel:[phone] Referring Provider: Debora Lara, [address] [place] [address], [address] . tel:[phone] [facility], [address], [place], [place], [address] , [place] tel: [phone] [facility] Unspecified protein-calori e malnutritionHy pertensive heart disease with heart failure 4 Abel Cazares. [address] [place] [address], [id number], [place]. tel:[phone] Tai Valencia.Ref erring Provider: Debora Lara, [address] [place] [address], [address] . tel:[phone] [facility], [address], [place], [place], [address] , tel: [phone] [facility] No Information 4 Mykel Smith. [address] [address], [place], [place], [id number], [place]. [phone] Referring Provider: Adele Rankin, [address] [place] [address], [address] . tel:[phone] OFFICE NGOGN-ILY-IX [facility], [address], [place], [place], [address] , [place] tel: [phone] [facility] 4 month check up (chief complaint)c hronic conditions (chief complaint)C hronic Conditions (chief complaint) Body mass index [BMI] 27.0-27.9, adultHypertens km heart disease with heart failureChronic diastolic (congestive) heart failureDementi a in other diseases classified elsewhere, unspecified severity, with other behavioral disturbanceUns pecified protein-calori e malnutritionIm paired fasting glucoseAbdomin al pain, unspecified abdominal locationWeight loss 4 Chucho Angulo. [address] [place] [address], [id number], [place]. tel:[phone] Tai Valencia.Ref erring Provider: Debora Lara, [address] [place] [address], [address] . tel:[phone] [facility], [address], [place], [place], [address] , [place] tel: [phone] [facility] No Information 4 Abel Cazares. [address] [place] [address], [id number], . tel:[phone] OFFICE OGEUN-LCP-DN [facility], [address], [place], [place], [address] , tel: [phone] [facility] chronic conditions (chief complaint)C hronic Conditions (chief complaint) Body mass index [BMI] 29.0-29.9, adultHypertens km heart disease with heart failureChronic diastolic (congestive) heart failureDementi a in other diseases classified elsewhere, unspecified severity, with other behavioral disturbanceImp aired fasting glucoseChronic obstructive pulmonary disease, unspecifiedAng jacques pectoris, unspecifiedSec ondary hyperparathyro idism, not elsewhere classifiedOthe r secondary pulmonary hypertensionHe miplegia and hemiparesis following cerebral infarction affecting right dominant sideAtheroscle rosis of aortaMajor depressive disorder, single episode, severe without psychotic featuresUnspec ified protein-calori e malnutritionPe rsonal history of malignant neoplasm of prostate 4 Chucho Angulo. [address] [place] [address], [id number], [place]. tel:[phone] Tai Valencia.Ref erring Provider: Debora Lara, [address] [place] [address], [address] . tel:[phone] [facility], [address], [place], [place], [address] , [place] tel: [phone] [facility] No Information 3 Abel Cazares. [address] [place] [address], [id number], [place]. [phone] [facility], [address], [place], [place], [address] , [place] tel: [phone] [facility] No Information 3 Abel Cazares. [address] [place] [address], [id number], [place]. tel:[phone] [facility], [address], [place], [place], [address] , [place] tel: [phone] [facility] No Information 3 Mykel [address]n. [address] [place] [address], [id number], . tel:[phone] Referring Provider: Debora Lara, [address] [place] [address], [place], [address] . tel:[phone] [facility], [address], [place], [place], [address] , [place] tel: [phone] [facility] No Information 3 Abel Cazares. [address] [place] [address], [id number], [place]. tel:[phone] Referring Provider: Debora Lara, [address] [place] [address], [place], [address] . tel:[phone] [facility], [address], [place], [place], [address] , [place] tel: [phone] [facility] Proteinuria, unspecified typeHypertensi ve heart disease with heart failureDementi a in other diseases classified elsewhere, unspecified severity, with other behavioral disturbance 3 Abel Cazares. [address] [place] [address], [id number], [place]. tel:[phone] Tai Valencia.Ref erring Provider: Debora Lara, [address] [place] [address], [place], [address] . tel:[phone] [facility], [address], [place], [place], [address] , [place] tel: [phone] [facility] No Information 3 Mykel Riversn. [address], [id number], . tel:[phone] Referring Provider: Debora Lara, [address] [place] [address], [address] . tel:[phone] [facility] [address], [place], [place], [address] , [place] tel: [phone] [facility] 1 month appt (chief complaint)O ther (chief complaint)C hronic Conditions (chief complaint) Hypertensive heart disease with heart failureChronic diastolic (congestive) heart failureSpinal stenosis, lumbar region without neurogenic claudicationOt her secondary pulmonary hypertensionBo dy mass index [BMI] 30.0-30.9, adult Mar- 3 Abel Cazares. [address] [place] [address], [id number], [place]. tel:[phone] Specialist : Tai Valencia, [address] [place], [address]. tel:[phone] erring Provider: Debora Lara, [address] [place] [address], [address] . tel:[phone] [facility], [address], [place], [place], [address] , [place] tel: [phone] [facility] No Information 3 Mykel Smith. [address] [place] [address], [id number], . tel:[phone] Referring Provider: Debora Lara, [address] [place] [address], [place], [address] . tel:[phone] OFFICE CGHWD-QUQ-TX [facility], [address], [place], [place], [address] , [place] tel: [phone] [facility] Chronic Conditions (chief complaint) Hypertensive heart disease with heart failureChronic diastolic (congestive) heart failureDementi a in other diseases classified elsewhere, unspecified severity, with other behavioral disturbanceImp aired fasting glucoseBody mass index [BMI] 31.0-31.9, adult 3 Abel Cazares. [address] [place] [address], [id number], [place]. tel:[phone] Referring Provider: Debora Lara, [address] [place] [address], [address] . tel:[phone] [facility], [address], [place], [place], [address] , [place] tel: [phone] [facility] No Information 3 Abel Cazares. [address] [place] [address], [id number], [place]. tel:[phone] OFFICE YFOQJ-SUN-DX TAILED [facility], [address], [place], [place], [address] , [place] tel: [phone] [facility] Chronic Conditions (chief complaint) Body mass index [BMI] pediatric, less than 5th percentile for ageHypertensiv e heart disease with heart failureChronic diastolic (congestive) heart failureHemiple saima and hemiparesis following cerebral infarction affecting right dominant sideBenign prostatic hyperplasia with lower urinary tract sympDementia in other diseases classified elsewhere, unspecified severity, with other behavioral disturbanceBod y mass index [BMI] 28.0-28.9, adult 3 Chucho Angulo. [address] [place] [address], [id number], [place]. tel:[phone] Referring Provider: Debora Lara, [address] [place] [address], [address] . tel:[phone] [facility], [address], [place], [place], [address] , [place] tel: [phone] [facility] No Information 3 Mykel Simth. [address], [id number], [place]. tel:[phone] Referring Provider: Robinson Burton, [address] [place] [address], [address]. tel:[phone] OFFICE NSWEH-GQB-CM [facility], [address], [place], [place], [address] , [place] tel: [phone] [facility] 3 month (chief complaint)C hronic Conditions (chief complaint)c hronic conditions (chief complaint) Body mass index [BMI] 28.0-28.9, adultChronic obstructive pulmonary disease, unspecifiedHyp ertensive heart disease with heart failureChronic diastolic (congestive) heart failureMajor depressive disorder, single episode, severe without psychotic featuresHemipl egia and hemiparesis following cerebral infarction affecting right dominant sideAngina pectoris, unspecifiedAth erosclerosis of aortaOther secondary pulmonary hypertensionSe condary hyperparathyro idism, not elsewhere classifiedMali gnant neoplasm of prostateImpair ed fasting glucoseBenign prostatic hyperplasia with lower urinary tract symptomsSpinal stenosis of lumbar region without neurogenic claudicationRe peated fallsShortness of breathRib pain on left sideDementia with behavioral disturbanceHal lucinations 3 Micheal Gaylin. [address] [place] [address], [address], [place]. tel:[phone] Referring Provider: Debora Lara, [address] [place] [address], [address] . tel:[phone] TELEPHONE E&M SERVICE BY A PHYSICIAN;5- 10 MINUTES OF MEDICAL DISCUSSION [facility], [address], [place], [place], [address] , [place] tel:[phone] [facility] Encounter for follow-up examination after completed treatment for conditions other than malignant neoplasm 3 Abel Cazares. [address] [place] [address], [id number], [place]. tel:[phone] Referring Provider: Debora Lara, [address] [place] [address], [address] . tel:[phone] OFFICE STAWL-HTT-MB [facility], [address], [place], [place], [address] , [place] tel:[phone] [facility] Medicine 3 month appt (chief complaint)O ther (chief complaint)C hronic Conditions (chief complaint) PleurodyniaFre quent fallsHypertens km heart disease with heart failureChronic diastolic (congestive) heart failureChronic obstructive pulmonary disease, unspecifiedBod y mass index [BMI] 28.0-28.9, adultOther specified symptoms and signs involving the circulatory and respiratory systems 2 Abel Cazares. [address] [place] [address], [place], [place], [id number], [place]. tel:[phone] Referring Provider: Debora Lara, [address] [place] [address], [place], [address] . tel:[phone] [facility], [address], [place], [place], [address] , tel: [phone] [facility] Internal Medicine No Information 2 Abel Cazares. [facility], [place], [place], [id number], [place]. tel:[phone] Referring Provider: Debora Lara, [address] [place] [address], [place], [address] . tel:[phone] OFFICE NMGHM-GYD-JZ [facility], [address], [place], [place], [address] , tel: [phone] [facility] Internal Medicine 3 month appt (chief complaint)O ther (chief complaint)C hronic Conditions (chief complaint) Frequent fallsHypertens km heart disease with heart failureChronic diastolic (congestive) heart failureChronic obstructive pulmonary disease, unspecifiedGen eralized abdominal painBody mass index [BMI] 29.0-29.9, adult 2 Abel Cazares. [facility], [place], [place], [id number], [place]. tel:[phone] Referring Provider: Debora Lara, [address] [place] [address], [place], [address] . tel:[phone] [facility] [address], [place], [place], [address] , tel: [phone] [facility] Internal Medicine No Information 2 Abel Cazares. [address] [place] [address], [id number], . tel:[phone] Referring Provider: Debora Lara, [address] [place] [address], [place], [address] . tel:[phone] OFFICE YJVLQ-XON-JY [facility], [address], [place], [place], [address] , tel: [phone] [facility] Internal Medicine 1 months follow up (chief complaint)o ther (chief complaint)C hronic Conditions (chief complaint) Hypertensive heart disease with heart failureChronic diastolic (congestive) heart failureFrequen t fallsMajor depressive disorder, single episode, severe without psychotic featuresUnspec ified protein-calori e malnutritionBo dy mass index [BMI] 29.0-29.9, adult 2 Abel Cazares. [address] [place] [address], [place], [place], [id number], [place]. [phone] Referring Provider: Debora Lara, [address] [place] [address], [place], [address] . tel:[phone] OFFICE QIULN-QEZ-VP [facility], [address], [place], [place], [address] , tel: [phone] [facility] Internal Medicine 3 month f/u (chief complaint)C hronic Conditions (chief complaint) Body mass index [BMI] 30.0-30.9, adultMajor depressive disorder, single episode, severe without psychotic featuresHypert ensive heart disease with heart failureChronic diastolic (congestive) heart failureCVA, old, hemiparesisChr onic obstructive pulmonary disease, unspecifiedFre quent fallsDecreased pedal pulses 2 Chucho Angulo. [address] [place] [address], [place], [place], [id number], [place]. tel:[phone] Referring Provider: Debora Lara, [address] [place] [address], [place], [address] . tel:[phone] [facility], [address], [place], [place], [address] , tel: [phone] [facility] Internal Medicine No Information 2 Abel Cazares. [address] [place] [address], [place], [place], [id number], [place]. tel:[phone] Referring Provider: Debora Lara, [address] [place] [address], [place], [address] . tel:[phone] OFFICE REYHX-SRP-XL [facility], [address], [place], [place], [address] , tel: [phone] [facility] Medicine Chronic Conditions (chief complaint) Body mass index [BMI] 30.0-30.9, adultAngina pectoris, unspecifiedImp aired fasting glucoseChronic obstructive pulmonary disease, unspecifiedAth erosclerosis of aortaCVA, old, hemiparesisChr onic diastolic (congestive) heart failureOther secondary pulmonary hypertensionHy pertensive heart disease with heart failureMajor depressive disorder, single episode, severe without psychotic featuresSecond rich hyperparathyro idism, not elsewhere classifiedBeni gn prostatic hyperplasia with lower urinary tract sympRight-side d low back pain without sciatica, unspecified chronicityIncr eased urinary frequency 2 Michealmio Bowers. [address] [place] [address], [place], [address], [place]. tel:[phone] Referring Provider: Debora Lara, [address] [place] [address], [place], [address] . tel:[phone] [facility], [address], [place], [place], [address] , tel: [phone] [facility] Internal Medicine Benign prostatic hyperplasia with lower urinary tract symp 1 Abel Cazares. [address] [place] [address], [id number], . tel:[phone] Referring Provider: Debora Lara, [address] [place] [address], [address] . tel:[phone] OFFICE ZBFNY-INN-POSCI-[facility], [address], [place], [place], [address] , tel: [phone] [facility] Internal Medicine Chronic Conditions (chief complaint) Hypertensive heart disease with heart failureChronic diastolic (congestive) heart failureBody mass index [BMI] 31.0-31.9, adultAngina pectoris, unspecifiedChr onic obstructive pulmonary disease, unspecifiedDor salgia, unspecifiedBen ign prostatic hyperplasia with lower urinary tract symp 1 Kyrie Burger. [address] [place] [address], [id number], . tel:[phone] Referring Provider: Debora Lara, [address] [place] [address], [address] . tel:[phone] [facility], [address], [place], [place], [address] , tel: [phone] [facility] Internal Medicine Unspecified abdominal pain 1 Abel Cazares. [address] [place] [address], [id number], [place]. tel:[phone] OFFICE YRKNB-YBA-BHSCI-[facility], [address], [place], [place], [address] , tel: [phone] [facility] Medicine Chronic Conditions (chief complaint) Hypertensive heart disease with heart failureChronic diastolic (congestive) heart failureMajor depressive disorder, recurrent severe without psychotic featuresUnspec ified abdominal painCyst of kidney, acquiredBody mass index (BMI) 32.0-32.9, adult 1 Abel Cazares. [address] [place] [address], [id number], [place]. tel:[phone] Referring Provider: Debora Lara, [address] [place] [address], [place], [address] . tel:[phone] OFFICE [facility], [address], [place], [place], [address] , [place] tel: [phone] [facility] Internal Medicine MA visit (chief complaint) Rib pain on left side October- 1 Abel Cazares. [address] [place] [address], [place], [place], [id number], [place]. tel:[phone] Referring Provider: Debora Lara, [address] [place] [address], [place], [address] . tel:[phone] [facility], [address], [place], [place], [address] , [place] tel: [phone] [facility] Internal Medicine Low back pain, unspecified back pain laterality, unspecified chronicity, unspecified whether sciatica present 1 Abel Cazares. [address] [place] [address], [place], [place], [address], [place]. tel:[phone] OFFICE ACIJB[facility] [place], [address], [place], [place], [address] , [place] tel: [phone] [facility] Internal Medicine Chronic Conditions (chief complaint) Orthostatic hypotensionPai n in right kneeDorsalgia, unspecifiedRep eated fallsBody mass index (BMI) 32.0-32.9, adultCompressi on fracture of T12 vertebra with delayed healing, subsequent encounter Sep- 1 Abel Cazares. [address] [place] [address], [place], [place], [id number], [place]. tel:[phone] Referring Provider: Debora Lara, [address] [place] [address], [place], [address] . tel:[phone] [facility], [address], [place], [place], [address] , [place] tel: [phone] [facility] Internal Medicine Chronic obstructive pulmonary disease, unspecifiedMaj or depressive disorder, single episode, severe without psychotic featuresCVA, old, hemiparesisAng jacques pectoris, unspecifiedChr onic diastolic (congestive) heart failureOther secondary pulmonary hypertension 1 Abel Cazares. [address] [place] [address], [id number], . tel:[phone] Referring Provider: Debora Lara, [address] [place] [address], [address] . tel:[phone] OFFICE XXFSV-IZJ-PB [facility], [address], [place], [place], [address] , tel: [phone] [facility] Internal Medicine Chronic Conditions (chief complaint) Hypertensive heart disease with heart failureChronic diastolic (congestive) heart failureCVA, old, hemiparesisSpi nal stenosis of lumbar region without neurogenic claudicationMa dave depressive disorder, single episode, severe without psychotic featuresAngina pectoris, unspecifiedChr onic obstructive pulmonary disease, unspecifiedImp aired fasting glucoseSeconda ry hyperparathyro idism, not elsewhere classifiedAthe rosclerosis of aortaOther secondary pulmonary hypertensionBo dy mass index (BMI) 32.0-32.9, adult 1 Abel Cazares. [address] [place] [address], [id number], [place]. tel:[phone] Referring Provider: Debora Lara, [address] [place] [address], [address] . tel:[phone] OFFICE AFARC-VHV-UO [facility], [address], [place], [place], [address] , tel: [phone] [facility] Internal Medicine Chronic Conditions (chief complaint) Hypertensive heart disease with heart failureChronic diastolic (congestive) heart failureSpinal stenosis of lumbar region without neurogenic claudicationCV A, old, hemiparesisOth er abnormalities of gait and mobilityOther amnesiaBody mass index (BMI) 32.0-32.9, adult 0 Abel Cazares. [address] [place] [address], [id number], . tel:[phone] Referring Provider: Debora Lara, [address] [place] [address], [address] . tel:[phone] OFFICE IPJNQ-MLB-FM [facility], [address], [place], [place], [address] , tel: [phone] [facility] Internal Medicine Chronic Conditions (chief complaint) Body mass index (BMI) 32.0-32.9, adultSpinal stenosis of lumbar region without neurogenic claudicationHy pertensive heart disease with heart failureChronic diastolic (congestive) heart failureChronic obstructive pulmonary disease, unspecifiedMaj or depressive disorder, single episode, severe without psychotic featuresAngina pectoris, unspecifiedLef t ear impacted cerumenImpaire d fasting glucose 0 Micheal Gaylin. [address] [place] [address], [address], . tel:[phone] Referring Provider: Debora Lara, [address] [place] [address], [address] . tel:[phone] [facility], [address], [place], [place], [address] , [place] tel:[phone] [facility] Internal Medicine Generalized abdominal pain 0 Abel Cazares. [address] [place] [address], [place], [place], [id number], [place]. tel:[phone] OFFICE PCBJG-HOO-YU [facility], [address], [place], [place], [address] , [place] tel: [phone] [facility] Internal Medicine Chronic Conditions (chief complaint) Chronic diastolic (congestive) heart failureSeconda ry hyperparathyro idism, not elsewhere classifiedSpin al stenosis of lumbar region without neurogenic claudicationCo ughHypertensiv e heart disease with heart failureBody mass index (BMI) 32.0-32.9, adult 0 Abel Cazares. [address] [place] [address], [id number], . tel:[phone] Referring Provider: Debora Lara, [address] [place] [address], [address] . tel:[phone] OFFICE JTCGG-NNR-RA [facility], [address], [place], [place], [address] , tel: [phone] [facility] Internal Medicine Chronic Conditions (chief complaint) CoughChronic diastolic (congestive) heart failureSeconda ry hyperparathyro idism, not elsewhere classifiedHype rtensive heart and 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 failure, with stage 1 through stage 4 chronic kidney disease, or unspecified chronic kidney diseaseChronic obstructive pulmonary disease, unspecifiedSpi nal stenosis of lumbar region without neurogenic claudicationCh ronic constipationCV A, old, hemiparesisHyp ertensive heart disease with chronic diastolic congestive heart failureBody mass index (BMI) 32.0-32.9, adult Apr-1 5-202 0 Abel Cazares. [address] [place] [address], [id number], . tel:[phone] Referring Provider: Debora Lara, [address] [place] [address], [address] . tel:[phone] [facility], [address], [place], [place], [address] , [place] tel:[phone] [facility] Internal Medicine Benign prostatic hyperplasia with lower urinary tract symp Mar-2 3-202 0 Abel Cazares. [address] [place] [address], [id number], [place]. tel:[phone] OFFICE UTASV-SUP-XT [facility], [address], [place], [place], [address] , [place] tel:[phone] [facility] Internal Medicine Chronic Conditions (chief complaint) Body mass index (BMI) 32.0-32.9, adultSpinal stenosis, lumbar region without neurogenic claudicationDi zziness and giddinessChron ic constipationCh ronic obstructive pulmonary disease, unspecified Mar-0 2-202 0 Rankinnaomi Angulo. [address] [place] [address], [id number], [place]. tel:[phone] Referring Provider: Debora Lara, [address] [place] [address], [place], [address] . tel:[phone] [facility], [address], [place], [place], [address] , tel: [phone] [facility] Internal Medicine No Information 0 Abel Cazares. [address] [place] [address], [id number], [place]. tel:[phone] [facility], [address], [place], [place], [address] , tel: [phone] [facility] Internal Medicine Cough 0 Abel Cazares. [address] [place] [address], [id number], [place]. tel:[phone] Referring Provider: Debora Lara, [address] [place] [address], [place], [address] . tel:[phone] OFFICE WVXPI-ADE-EY [facility], [address], [place], [place], [address] , tel: [phone] [facility] Internal Medicine Chronic conditions f/u (chief complaint)C hronic Conditions (chief complaint) Hypertensive heart and 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 failure, with stage 1 through stage 4 chronic kidney disease, or unspecified chronic kidney diseaseChronic diastolic (congestive) heart failureSpinal stenosis, lumbar region without neurogenic claudicationMa dave depressive disorder, recurrent, unspecifiedSec ondary hyperparathyro idism, not elsewhere classifiedAthe rosclerosis of aortaChronic obstructive pulmonary disease, unspecifiedHem iplegia, unspecified affecting left nondominant sideCoughBody mass index (BMI) 32.0-32.9, adult 0 Abel Cazares. [address] [place] [address], [place], [place], [id number], [place]. tel:[phone] Referring Provider: Debora Lara, [address] [place] [address], [address] . tel:[phone] [facility], [address], [place], [place], [address] , tel: [phone] [facility] Internal Medicine Generalized abdominal pain 9 Abel Cazares. [address] [place] [address], [id number], [place]. tel:[phone] OFFICE DHEKR-EUM-IH [facility], [address], [place], [place], [address] , tel: [phone] [facility] Internal Medicine Chronic Conditions (chief complaint) Body mass index (BMI) 31.0-31.9, adultHypertens km heart disease with heart failureChronic diastolic heart failureVitamin D deficiencyGene ralized abdominal painSpinal stenosis, lumbar region without neurogenic claudicationSe condary hyperparathyro idismAcute pain of right shoulderProduc tive coughImpaired glucose tolerance 6 9 Rankin Adele. [address] [place] [address], [id number], [place]. tel:[phone] Referring Provider: Debora Lara, [address] [place] [address], [address] . tel:[phone] [facility], [address], [place], [place], [address] , tel: [phone] [facility] Internal Medicine Hypertensive heart disease with heart failure 0201 9 Abel Cazares. [address] [place] [address], [id number], [place]. tel:[phone] [facility], [address], [place], [place], [address] , tel: [phone] [facility] Internal Medicine Malignant neoplasm of prostate 8 9 Abel Cazares. [address] [place] [address], [id number], [place]. tel:[phone] [facility], [address], [place], [place], [address] , tel: [phone] [facility] Internal Medicine Essential (primary) hypertension Mar-0 8 9 Kyrie Burger. [address] [place] [address], [place], [place], [address], [place]. tel:[phone] OFFICE IIKDW-UKZ-TK [facility], [address], [place], [place], [address] , tel: [phone] [facility] Internal Medicine Chronic Conditions (chief complaint) Body mass index (BMI) 32.0-32.9, adultDizziness and giddinessSpina l stenosis, lumbar region without neurogenic claudicationBe nign prostatic hyperplasia with lower urinary tract symptomsAnemia , unspecified Mar- 9 Abel Cazares. [address] [place] [address], [id number], [place]. tel:[phone] Referring Provider: Debora Lara, [address] [place] [address], [place], [address] . tel:[phone] OFFICE XUNAI-XYV-QL [facility], [address], [place], [place], [address] , tel: [phone] [facility] Internal Medicine Chronic Conditions (chief complaint) Body mass index (BMI) 32.0-32.9, adultSpinal stenosis, lumbar region without neurogenic claudicationMa dave depressive disorder, recurrent, unspecifiedDiz ziness and giddinessBenig n prostatic hyperplasia with lower urinary tract symptomsUnspec ified disorder of eyelidAnemia, unspecified Feb- 9 Abel Cazares. [address] [place] [address], [id number], [place]. tel:[phone] Referring Provider: Debora Lara, [address] [place] [address], [place], [address] . tel:[phone] [facility], [address], [place], [place], [address] , tel: [phone] [facility] Internal Medicine No Information 9 Abel Cazares. [address] [place] [address], [id number], [place]. tel:[phone] Referring Provider: Debora Lara, [address] [place] [address], [address] . tel:[phone] OFFICE TASHU-WJS-YN [facility], [address], [place], [place], [address] , tel: [phone] [facility] Internal Medicine Chronic Conditions (chief complaint) Body mass index (BMI) 32.0-32.9, adultSpinal stenosis of lumbar region without neurogenic claudicationHy perparathyroid ism, secondary renalDark stoolsMajor depression, recurrent, chronicMalnutr ition, unspecified typeWeight lossEncounter for screening for malignant neoplasm of colonLower abdominal pain Micheal Bowers. [address] [place] [address], [address], [place]. tel:[phone] Referring Provider: Debora Lara, [address] [place] [address], [address] . tel:[phone] OFFICE CZWXE-FVA-GGSCI-[facility], [address], [place], [place], [address] , tel: [phone] [facility] Internal Medicine Chronic Conditions (chief complaint) Body mass index (BMI) 33.0-33.9, adultProstate cancerHematuri a, unspecified typeSpinal stenosis of lumbar region without neurogenic claudicationDi zziness 9 Abel Cazares. [address] [place] [address], [id number], [place]. tel:[phone] Referring Provider: Debora Lara, [address] [place] [address], [place], [address] . tel:[phone] [facility], [address], [place], [place], [address] , tel: [phone] [facility] Internal Medicine Hematuria, unspecified type 9 Abel Cazares. [address] [place] [address], [id number], [place]. tel:[phone] [facility]ICE [facility], [address], [place], [place], [address] , tel: [phone] [facility] Internal Medicine UTI sx (chief complaint) Leukocytes in urineHematuria , unspecified typeFlank painDysuria Abel Cazares. [address] [place] [address], [id number], [place]. tel:[phone] Referring Provider: Debora Lara, [address] [place] [address], [address] . tel:[phone] [facility], [address], [place], [place], [address] , tel: [phone] 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 [address] [place] [address], [id number], [place]. tel:[phone] [facility], [address], [place], [place], [address] , tel: [phone] [facility] Internal Medicine Spinal stenosis of lumbar region without neurogenic claudicationCh ronic constipationMa dave depression, recurrent, chronicDizzine ssLeg crampsHistory of BPHBody mass index (BMI) 34.0-34.9, adult Apr-2 9 Abel Cazares. [address] [place] [address], [id number], [place]. tel:[phone] Referring Provider: Debora Lara, [address] [place] [address], [address] . tel:[phone] [facility], [address], [place], [place], [address] , [place] tel: [phone] [facility] Internal Medicine Induration penis plastica 9 Abel Cazares. [address] [place] [address], [id number], [place]. tel:[phone] [facility], [address], [place], [place], [address] , tel: [phone] [facility] Internal Medicine Blood in stool 9 Abel Cazares. [address] [place] [address], [id number], [place]. tel:[phone] [facility], [address], [place], [place], [address] , [place] tel: [phone] [facility] Internal Medicine Hypertensive heart disease with chronic diastolic congestive heart failureChronic diastolic heart failureSpinal stenosis of lumbar region without neurogenic claudicationMo rbid obesity due to excess caloriesSecond rich hypoparathyroi dismChronic constipationAo rtic atherosclerosi sCVA, old, hemiparesisOth er secondary pulmonary hypertensionCO PD (chronic obstructive pulmonary disease) with chronic bronchitisMode rately severe major depressionBody mass index (BMI) 35.0-35.9, adult Fe 9 Abel Cazares. [address] [place] [address], [id number], [place]. tel:[phone] Referring Provider: Debora Lara, [address] [place] [address], [address] . tel:[phone] [facility], [address], [place], [place], [address] , [place] tel: [phone] [facility] Internal Medicine Cervical radiculopathyH ypertensive heart disease with chronic diastolic congestive heart failureChronic diastolic heart failureMorbid obesity due to excess caloriesSpinal stenosis of lumbar region without neurogenic claudicationDi zziness 8 Abel Cazares. [address] [place] [address], [id number], [place]. tel:[phone] Referring Provider: Debora Lara, [address] [place] [address], [address] . tel:[phone] [facility], [address], [place], [place], [address] , tel: [phone] [facility] Internal Medicine Induration penis plastica Nov-- 8 Abel Cazares. [address] [place] [address], [id number], [place]. tel:[phone] [facility], [address], [place], [place], [address] , tel: [phone] [facility] Internal Medicine Hallucinations 6-201 8 Abel Cazares. [address] [place] [address], [id number], [place]. tel:[phone] [facility], [address], [place], [place], [address] , tel: [phone] [facility] Internal Medicine Shortness of breath Sep-1 7-201 8 Abel Cazares. [address] [place] [address], [id number], [place]. tel:[phone] [facility], [address], [place], [place], [address] , tel: [phone] [facility] Internal Medicine Spinal stenosis of lumbar region without neurogenic claudicationCe rvical radiculopathyE ncounter for immunizationCh est pain of uncertain etiologyDyspne a on exertion Sep-0 5-201 8 Rankin Adele. [address] [place] [address], [id number], [place]. tel:[phone] Referring Provider: Debora Lara, [address] [place] [address], [address] . tel:[phone] [facility], [address], [place], [place], [address] , tel: [phone] [facility] Internal Medicine Anemia, unspecified type 8 Abel Cazares. [address] [place] [address], [id number], . tel:[phone] Referring Provider: Debora Lara, [address] [place] [address], [address] . tel:[phone] [facility], [address], [place], [place], [address] , tel: [phone] [facility] Internal Medicine Prostate cancer 8 Abel Cazares. [address] [place] [address], [id number], [place]. tel:[phone] [facility], [address], [place], [place], [address] , tel: [phone] [facility] Internal Medicine Guaiac positive stoolsChronic diastolic heart failureHyperte nsive heart disease with chronic diastolic congestive heart failureLeg crampsSecondar y hypoparathyroi dismVitamin D deficiencyBody mass index (BMI) 34.0-34.9, adult 8 Abel Cazares. [address] [place] [address], [id number], [place]. tel:[phone] Referring Provider: Debora Lara, [address] [place] [address], [address] . tel:[phone] [facility], [address], [place], [place], [address] , tel: [phone] [facility] Internal Medicine Weight check (chief complaint)C ervical pain/ (chief complaint) Acute on chronic diastolic (congestive) heart failureCervica l pain 8 Abel Cazares. [address] [place] [address], [id number], [place]. tel:[phone] Referring Provider: Debora Lara, [address] [place] [address], [address] . tel: [facility], [address], [place], [place], [address] , tel: [phone] [facility] Internal Medicine Acute on chronic diastolic (congestive) heart failure 8 Abel Cazares. [address] [place] [address], [place], [place], [id number], [place]. tel:[phone] Referring Provider: Debora Lara, [address] [place] [address], [place], [address] . tel:[phone] [facility], [address], [place], [place], [address] , [place] tel: [phone] [facility] Internal Medicine Morbid obesity due to excess caloriesAcute on chronic diastolic (congestive) heart failureHyperte nsive heart disease with acute on chronic diastolic congestive heart failureSleep apnea in adultGuaiac positive stools 8 Abel Cazares. [address] [place] [address], [place], [place], [id number], [place]. tel:[phone] Referring Provider: Debora Lara, [address] [place] [address], [place], [address] . tel:[phone] [facility], [address], [place], [place], [address] , [place] tel: [phone] Administratio n Abnormal chest xraySleep apnea in adultHallucina tionsBlood in stool 8 Abel Cazares. [facility], [place], [place], [address], [place]. tel:[phone] Referring Provider: Debora Lara, [address] [place] [address], [place], [address] . tel:[phone] [facility], [address], [place], [place], [address] , tel: [phone] [facility] Internal Medicine Sleep apnea in adult 8 Abel Cazares. [address] [place] [address], [place], [place], [id number], . tel:[phone] [facility], [address], [place], [place], [address] , tel: [phone] [facility] Internal Medicine Unsteady gaitHallucinat ionsSleep apnea in adultUrgency incontinenceCh ronic constipation Aug-0 7-201 8 Abel Cazares. [address] [place] [address], [place], [place], [id number], [place]. tel:[phone] Referring Provider: Debora Lara, [address] [place] [address], [address] . tel:[phone] [facility], [address], [place], [place], [address] , tel: [phone] [facility] Internal Medicine Black stoolChronic diastolic heart failureHalluci nationsLoose stools 8 Abel Cazares. [address] [place] [address], [place], [place], [address], [place]. tel:[phone] Referring Provider: Debora Lara, [address] [place] [address], [address] . tel:[phone] [facility], [address], [place], [place], [address] , tel: [phone] [facility] Internal Medicine Hypertensive heart disease with CHFChronic diastolic heart failureHalluci nationsLoose stoolsBlack stool 3201 8 Micheal Gaylin. [address] [place] [address], [place], [address], [place]. tel:[phone] Referring Provider: Debora Lara, [address] [place] [address], [address] . tel:[phone] [facility], [address], [place], [place], [address] , tel: [phone] [facility] Internal Medicine CVA, old, hemiparesisMod erately severe major depressionHype rtensive heart disease with CHFChronic diastolic heart failureOther secondary pulmonary hypertensionCO PD (chronic obstructive pulmonary disease) with chronic bronchitisAort ic atherosclerosi sUnsteady gaitHallucinat ionsUrgency incontinence 0 8 Abel Cazares. [address] [place] [address], [place], [place], [id number], [place]. tel:[phone] Referring Provider: Debora Lara, [address] [place] [address], [place], [address] . tel:[phone] [facility], [address], [place], [place], [address] , [place] tel: [phone] [facility] Internal Medicine Hallucinations Chronic constipationSl eep apnea in adultUnsteady gaitCVA, old, hemiparesisUrg e incontinence 7 Abel Cazares. [address] [place] [address], [place], [place], [address], [place]. tel:[phone] Referring Provider: Debora Lara, [address] [place] [address], [place], [address] . tel:[phone] [facility], [address], [place], [place], [address] , [place] tel: [phone] [facility] Internal Medicine Other visual disturbancesHa llucinationsMo derately severe major depressionChro robert constipationSl eep apnea in adult 7 Abel Cazares. [address] [place] [address], [place], [place], [id number], [place]. tel:[phone] Referring Provider: Debora Lara, [address] [place] [address], [place], [address] . tel:[phone] [facility], [address], [place], [place], [address] , tel: [phone] Administratio n Urge incontinence 9-201 7 Abel Cazares. [address] [place] [address], [place], [place], [id number], [place]. tel:[phone] [facility], [address], [place], [place], [address] , [place] tel: [phone] [facility] Internal Medicine Prostate cancer 7 Abel Cazares. [address] [place] [address], [id number], [place]. tel:[phone] [facility], [address], [place], [place], [address] , [place] tel: [phone] [facility] Internal Medicine Unsteady gaitChronic constipationMo derately severe major depression Feb- 7 Reaka Lynne. [address] [place] [address], [address], [place]. tel:[phone] Referring Provider: Debora Lara, [address] [place] [address], [address] . tel:[phone] [facility], [address], [place], [place], [address] , [place] tel: [phone] [facility] Internal Medicine Right medial knee pain 7 Mendez Carol. [address] [facility], [address], [place], [address], [place]. tel:[phone] [facility], [address], [place], [place], [address] , tel: [phone] [facility] Internal Medicine Urinary frequencyHyper tensive heart disease with CHFChronic diastolic heart failureModerat arslan severe major depression 7 Michealmio Bowers. [address] [place] [address], [address], [place]. tel:[phone] Referring Provider: Debora Lara, [address] [place] [address], [address] . tel:[phone] [facility], [address], [place], [place], [address] , [place] tel: [phone] [facility] Internal Medicine Melanocytic nevus, unspecified location 7 Abel Cazares. [address] [place] [address], [id number], [place]. tel:[phone] [facility], [address], [place], [place], [address] , [place] tel: [phone] [facility] Internal Medicine Right medial knee painUrinary frequencyHyper tensive heart disease with CHFSecondary pulmonary hypertensionCh ronic diastolic heart failureChronic constipationBi lateral hearing loss, unspecified hearing loss type Jethro-2 0-201 7 Abel Cazares. [address] [place] [address], [id number], [place]. tel:[phone] Referring Provider: Debora Lara, [address] [place] [address], [address] . tel:[phone] [facility], [address], [place], [place], [address] , [place] tel: [phone] [facility] Internal Medicine Right medial knee pain October-0 3-201 7 Abel Cazares. [address] [place] [address], [id number], [place]. tel:[phone] [facility], [address], [place], [place], [address] , [place] tel: [phone] [facility] Internal Medicine Spinal stenosis, lumbar regionCVA, old, hemiparesisRig ht medial knee painNocturia Sep- 7-201 7 Abel Cazares. [address] [place] [address], [id number], [place]. tel:[phone] Referring Provider: Debora Lara, [address] [place] [address], [address] . tel:[phone] [facility], [address], [place], [place], [address] , [place] tel: [phone] [facility] Internal Medicine Right knee pain, unspecified chronicity Aug-2 0-201 7 Andrea Medina. [address] [place] [address], [address], [place], [address], [place]. tel:[phone] [facility], [address], [place], [place], [address] , tel: [phone] [facility] Internal Medicine Urinary frequencySpina l stenosis, lumbar regionPoor balanceAcute pain of right knee Mar-1 4-201 7 Abel Cazares. [address] [place] [address], [id number], . tel:[phone] Referring Provider: Debora Lara, [address] [place] [address], [address] . tel:[phone] [facility], [address], [place], [place], [address] , tel: [phone] [facility] Internal Medicine Dysuria Mar-0 8-201 7 Abel Cazares. [address] [place] [address], [id number], . tel:[phone] Referring Provider: Debora Lara, [address] [place] [address], [address] . tel:[phone] [facility], [address], [place], [place], [address] , tel: [phone] [facility] Internal Medicine Spinal stenosis, lumbar region Mar-0 7-201 7 Abel Cazares. [address] [place] [address], [id number], [place]. tel: [phone] [facility], [address], [place], [place], [address] , tel: [phone] [facility] Spinal stenosis, lumbar region Feb-1 5-201 7 Ruston Laura. [address] [place] [address], [id number], [place]. tel:[phone] [facility], [address], [place], [place], [address] , tel: [phone] [facility] CVA, old, hemiparesisAor tic atherosclerosi sCOPD (chronic obstructive pulmonary disease) with chronic bronchitisMDD (major depressive disorder), recurrent episode, moderateProsta te cancerSpinal stenosis, lumbar regionConstipa tion due to opioid therapyPoor balanceChronic diastolic heart failure 7 Abel Cazares. [address] [place] [address], [id number], [place]. tel:[phone] Referring Provider: Debora Lara, [address] [place] [address], [address] . tel:[phone] [facility], [address], [place], [place], [address] , [place] tel: [phone] [facility] Stroke 7 Abel Cazares. [address] [place] [address], [id number], [place]. tel:[phone] [facility], [address], [place], [place], [address] , tel: [phone] [facility] Stroke 7 Abel Cazares. [address] [place] [address], [id number], [place]. tel: [phone] [facility], [address], [place], [place], [address] , [place] tel: [phone] [facility] Stroke 7 Abel Cazares. [address] [place] [address], [id number], [place]. tel: [phone] [facility], [address], [place], [place], [address] , [place] tel: [phone] [facility] Atypical chest pain May-0 2-201 6 Micheal Gaylin. [address] [place] [address], [address], [place]. tel:[phone] [facility], [address], [place], [place], [address] , tel: [phone] [facility] Fall, initial encounter 3 0-201 6 Abel Cazares. [address] [place] [address], [id number], [place]. tel:[phone] [facility], [address], [place], [place], [address] , tel: [phone] [facility] Constipation due to opioid therapyBlood in stoolSpinal stenosis, lumbar regionLeft wrist pain 8-201 6 Abel Caazres. [address] [place] [address], [id number], [place]. tel:[phone] Referring Provider: Debora Lara, [address] [place] [address], [address] . tel:[phone] [facility], [address], [place], [place], [address] , tel: [phone] [facility] NocturiaBlood in stool 3-201 6 Abel Cazares. [address] [place] [address], [id number], [place]. tel:[phone] [facility], [address], [place], [place], [address] , tel: [phone] [facility] Spinal stenosis, lumbar regionLeft wrist painDizzinessE ye exam, routine 9-201 6 Abel Cazares. [address] [place] [address], [id number], [place]. tel:[phone] Referring Provider: Debora Lara, [address] [place] [address], [address] . tel:[phone] [facility], [address], [place], [place], [address] , tel: [phone] [facility] Atypical chest painChronic left shoulder painSpinal stenosis, lumbar regionLeft wrist painNocturia 1-201 6 Abel Cazares. [address] [place] [address], [id number], [place]. tel:[phone] Referring Provider: Debora Lara, [address] [place] [address], [address] . tel:[phone] [facility], [address], [place], [place], [address] , tel: [phone] [facility] Other physeal fracture of lower end of radius, left arm, subsequent encounter for fracture with routine healingChronic diastolic heart failureSpinal stenosis, lumbar regionFall at home, sequelaMDD (major depressive disorder), recurrent episode, moderateConsti pation, chronicMaligna nt neoplasm of prostate 2-201 6 Abel Debora. [address] [place] [address], [id number], [place]. tel:[phone] Referring Provider: Debora Lara, [address] [place] [address], [address] . tel:[phone] [facility], [address], [place], [place], [address] , tel: [phone] [facility] Malignant neoplasm of prostate 3-201 6 Ruston Debora. [address] [place] [address], [id number], [place]. tel:[phone] [facility], [address], [place], [place], [address] , [place] tel: [phone] [facility] Broken wrist, left, closed, initial encounter 6 Abel Debora. [address] [place] [address], [id number], [place]. tel:[phone] [facility], [address], [place], [place], [address] , [place] tel: [phone] [facility] Malignant neoplasm of prostateSpinal stenosis, lumbar regionMajor depressive disorder, single episode, unspecifiedAth erosclerosis of aortaChronic diastolic heart failureChronic obstructive pulmonary disease, unspecified COPD typeStomach upset 7 6 Abel Debora. [address] [place] [address], [id number], [place]. tel:[phone] Referring Provider: Debora Lara, [address] [place] [address], [place], [address] . tel: [facility], [address], [place], [place], [address] , tel: [phone] [facility] Encounter for immunizationMa lignant neoplasm of prostateSpinal stenosis, lumbar region 0-201 5 Abel Cazares. [address] [place] [address], [id number], [place]. tel: [phone] Referring Provider: Debora Lara, [address] [place] [address], [address] . tel: [facility], [address], [place], [place], [address] , [place] tel:[phone] [facility] Malignant neoplasm of prostate 4-201 5 Abel Cazares. [address] [place] [address], [id number], [place]. tel:[phone] [facility], [address], [place], [place], [address] , [place] tel:[phone] [facility] Prostate cancerEnlarged prostateSpinal stenosis of lumbar region with radiculopathy 4-201 5 Abel Cazares. [address] [place] [address], [id number], [place]. tel: [phone] Referring Provider: Debora Lara, [address] [place] [address], [address] . tel:[phone] [facility], [address], [place], [place], [address] , [place] tel: [phone] [facility] Spinal stenosis of lumbar region with radiculopathy 0 7-201 5 Abel Laura. [address] [place] [address], [id number], [place]. tel: [phone] [facility], [address], [place], [place], [address] , tel: [phone] [facility] Gynecomastia, male Dec-0 6 5 Abel Cazares. [address] [place] [address], [id number], [place]. tel:[phone] Referring Provider: Debora Lara, [address] [place] [address], [place], [address] . tel:[phone] [facility], [address], [place], [place], [address] , tel:[phone] [facility] Spinal stenosis of lumbar region with radiculopathyB PH (benign prostatic hyperplasia)Gy necomastia, maleED (erectile dysfunction) 0 5 Abel Cazares. [address] [place] [address], [place], [place], [address], [place]. tel:[phone] Referring Provider: Debora Lara, [address] [place] [address], [place], [address] . tel:[phone] [facility], [address], [place], [place], [address] , [place] tel: [phone] [facility] BPH (benign prostatic hyperplasia)Sp inal stenosis of lumbar region with radiculopathyM DD (major depressive disorder) 5 Abel Cazares. [address] [place] [address], [id number], [place]. tel:[phone] Referring Provider: Debora Lara, [address] [place] [address], [place], [address] . tel:[phone] [facility], [address], [place], [place], [address] , tel: [phone] [facility] BPH (benign prostatic hyperplasia)Sp inal stenosis of lumbar region with radiculopathyM DD (major depressive disorder)Aorti c atherosclerosi sCOPD (chronic obstructive pulmonary disease)Left ventricular diastolic dysfunction with preserved systolic functionUrinar y Tract Infection Sep-0 8 5 Abel Cazares. [address] [place] [address], [place], [place], [address], [place]. tel:[phone] Referring Provider: Debora Lara, [address] [place] [address], [address] . tel:[phone] [facility], [address], [place], [place], [address] , tel: [phone] [facility] Dizziness 5 Abel Cazares. [address] [place] [address], [id number], [place]. tel:[phone] Referring Provider: Debora Lara, [address] [place] [address], [address] . tel:[phone] [facility], [address], [place], [place], [address] , [place] tel: [phone] [facility] Pneumonia VaccineChronic low back painChronic airway obstructionAbd ominal painUrinary frequencyScree litzy for malignant neoplasm of the rectum 4 Nathaniel Phillips. [address] [facility], [address], [place], [place], [address]. tel:[phone] Referring Provider: Jacqueline Armstrong, [address] [facility] [address], [place], [address] . tel:[phone] [facility], [address], [place], [place], [address] , [place] tel: [phone] [facility] Detached retina 4 Nathaniel Phillips. [address] [facility], [address], [place], [place], [address]. tel:[phone] [facility], [address], [place], [place], [address] , [place] tel: [phone] [facility] Cervical osteoarthritis Chronic low back painAbdominal painChronic airway obstructionDep ressionHyperli pidemiaDetache d retinaGynecoma stia, male 4 Nathaniel Phillips. [address] [facility], [address], [place], [address]. tel:[phone] Referring Provider: Jacqueline Armstrong, [address] [facility] [address], [place], [address] . tel:[phone] [facility], [address], [place], [place], [address] , tel: [phone] [facility] Sore throatChronic low back painOther chronic pain 4 Andrea Medina. [address] [facility], [address], [place], [address], [place]. [phone] Referring Provider: Jacqueline Armstrong, [address], [place], [address] . tel:[phone] [facility], [address], [place], [place], [address] , [place] tel: [phone] [facility] Urinary Tract Infection Apr-0 2 4 Nathaniel Phillips. [address], [address], [place], [place], [address]. tel:[phone] Referring Provider: Jacqueline Armstrong, [address], [place], [address] . tel:[phone] [facility], [address], [place], [place], [address] , tel: [phone] [facility] Hematuria 4 Nathaniel Phillips. [address], [address], [place], [place], [address]. tel:[phone] Referring Provider: Jacqueline Armstrong, [address], [place], [address] . [phone] [facility], [address], [place], [place], [address] , [place] tel: [phone] [facility] History of fall/At Risk For FallingGastrit is Fe-2 0-201 4 Nathaniel Phillips. [address], [address], [place], [place], [address]. tel:[phone] Referring Provider: Jacqueline Armstrong, [address], [place], [address] . tel:[phone] [facility], [address], [place], [place], [address] , [place] tel: [phone] [facility] Abdominal painHyperlipid emiaCervical osteoarthritis Spinal stenosis of lumbar region, W/O Neurogenic CChronic airway obstructionTob acco Abuse 4 Nathaniel Phillips. [address], [address], [place], [place], [address]. tel:[phone] Referring Provider: Jacqueline Armstrong, [address], [place], [address] . tel:[phone] [facility] [address], [place], [place], [address] , [place] tel: [phone] [facility] Cervical spondylosis without myelopathySpin al stenosis of lumbar region, W/O Neurogenic Claudication 3 Nathaniel Phillips. [address], [address], [place], [place], [address]. tel:[phone] Referring Provider: Jacqueline Armstrong, [address], [place], [address] . tel:[phone] [facility], [address], [place], [place], [address] , [place] tel: [phone] [facility] No Information 3 Kye Kinsey. [address] [facility], [address], [place], [place], [address]. 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 [address], [address], [place], [place], [address]. tel:[phone] Referring Provider: Jacqueline Armstrong, [address], [place], [address] . tel:[phone] [facility], [address], [place], [place], [address] , tel:[phone] [facility] Lumbar spinal stenosisShould er painOther and unspecified hyperlipidemia Depressive disorder, not elsewhere classified 0 3 Nathaniel Phillips. [address], [address], [place], [place], [address]. tel:[phone] Referring Provider: Jacqueline Armstrong, [address], [place], [address] . tel:[phone] [facility], [address], [place], [place], [address] , tel:[phone] [facility] Orthostatic hypotensionSpi nal stenosis of lumbar region, W/O Neurogenic CDepressionDet ached retinaHyperlip idemia 3 Nathaniel Phillips. [address] [facility], [address], [place], [place], [address]. tel:[phone] Referring Provider: Jacqueline Armstrong, [address], [place], [address] . tel:[phone] [facility], [address], [place], [place], [address] , tel:[phone] [facility] Spinal stenosis of lumbar region, W/O Neurogenic ClaudicationTo bacco use disorder 3 Nathaniel Phillips. [address], [address], [place], [place], [address]. tel:[phone] Referring Provider: Jacqueline Armstrong, [address], [place], [address] . tel:[phone] [facility], [address], [place], [place], [address] , tel: [phone] [facility] Orthostatic hypotensionSpi nal stenosis of lumbar region, W/O Neurogenic Claudication 3 Abel Cazares. [address], [place], [address], [place]. tel:[phone] Referring Provider: Jacqueline Armstrong, [address], [place], [address] . tel:[phone] [facility], [address], [place], [place], [address] , tel: [phone] [facility] No Information 2 Nathaniel Phillips. [address], [address], [place], [place], [address]. tel:[phone] Referring Provider: Jacqueline Armstrong, [address], [place], [address] . tel:[phone] [facility], [address], [place], [place], [address] , tel: [phone] [facility] Lumbar spinal stenosisChroni c obstructive pulmonary disease (COPD)Depressi onActive smoker 2 Nathaniel Phillips. [address] [facility], [address], [place], [place], [address]. tel:[phone] Referring Provider: Jacqueline Armstrong, [address], [place], [address] . tel:[phone] [facility], [address], [place], [place], [address] , tel: [phone] [facility] Lumbar spinal stenosisDetach ed retinaHearing lossChronic airway obstruction, not elsewhere classified 2 Nathaniel Phillips. [address] [facility], [address], [place], [place], [address]. tel:[phone] Referring Provider: Jacqueline Armstrong [address], [place], [address] . tel:[phone] [facility], [address], [place], [place], [address] , tel: [phone] [facility] No Information Dec-0 2-201 1 Kye Kinsey. [address] [facility], [address], [place], [place], [address]. tel:[phone] Referring Provider: Tio Fishman, [address] [facility] [address], [place], [address] . tel:[phone] [facility], [address], [place], [place], [address] , tel: [phone] [facility] VACCIN FOR INFLUENZA Mar- 4-201 0 Nathaniel Phillips. [address], [address], [place], [place], [address]. tel: [phone] [facility], [address], [place], [place], [address] , tel: [phone] [facility] Prediabetes May-0 4-201 0 Nathaniel Phillips. [address], [address], [place], [place], [address]. tel: [phone] [facility], [address], [place], [place], [address] , tel: [phone] [facility] CHR AIRWAY OBSTRUCT NEC Tejas-0 7-201 0 Nathaniel Phillips. [address], [address], [place], [place], [address]. tel: [phone] [facility], [address], [place], [place], [address] , [place] tel: [phone] [facility] No Information May-0 9-200 7 Alec Shipman. [address] , [place], [place], [address], [place]. tel:[phone] [facility], [address], [place], [place], [address] , [place] tel: [phone] [facility] HEMATURIA 200 7 Nathaniel Phillips. [address], [address], [place], [place], [address]. tel:[phone] [facility], [address], [place], [place], [address] , [place] tel: [phone] [facility] FM HX PROSTATE MALIG 3 Conversion Doctor. [address] [facility], [place], [address], [place]. Family History Family Member Type Diagnosis Age At Onset Sister Problem (finding) unknown cause (Cause Of ) Sister Problem (finding) Family h/o Problem (finding) MALIGNANT NEOPLASM OF P ROSTATE Mother Problem (finding) Father Problem (finding) prostate cancer (Cause Of ) Mother Problem (finding) unknown cause (Cause Of ) Father Problem (finding) Immunizations Vaccine Date Status Comments RSV (Abrysvo), preF, bivalen t vaccine, 120 mcg/0.5 mL administered Note: [facility] ; Sour ce: Other Provider [employer] Wendyirnatmarcus COVID vacci ne, shandra-sucrose, 30mcg/0.3mL dose, 12 years and older administered Note: [facility] ; Source: Other Provider Fluzone High-Dose Trivalent, preservative free administered Source: New Immuniza tion Record Pneumococcal conjugate PCV20 administered Source: New Immunization Record SHINGRIX (Zoster vaccine recombinant, adjuvanted) administered Note: [facility] ; Elsa rce: Other Provider Moderna Spikevax COVID Vacci ne, mRNALNP, 50 mcg/0.5 mL dose, 12+ years administered Note: [facility] ; Source: Other Provider Fluzone High-Dose, high dose , preservative free administered Source: New Immuniza tion Record SHINGRIX (Zoster vaccine recombinant, adjuvanted) administered Note: [facility] ; Elsa rce: Other Provider Moderna (Low Dose) COVID19 Vaccine, 0.25mL per dose, booster dose administered Note: [facility] ; Source: Other Provider Fluzone High-Dose, high dose , preservative free administered Note: [facility] ; Source: Other Provider Moderna (Low Dose) COVID19 Vaccine, 0.25mL per dose, booster dose administered Note: [facility] ; Source: Other Provider Moderna COVID19 Vaccine, 0.5 mL per dose, 2 doses, administered 28 days apart administered Note: [place] [facility] ; Source: Other Provider Moderna COVID19 Vaccine, 0.5 mL per dose, 2 doses, administered 28 days apart administered Note: [facility] ; Source: Other Provider Fluzone High-Dose, high dose , preservative free administered Source: New Immuniza tion Record Fluzone High-Dose, high dose , preservative free administered Note: [facility] ; Elsa rce: Other Provider Fluzone High-Dose, high dose , preservative free administered Source: New Immuniza tion Record Fluzone Quad 6937-8584, spli t virus, 0.5mL dosage administered Source: New Immuniza tion Record Pneumococcal polysaccharide PPV23 administered Source: New Immuniza tion Record influenza, injectable, quadrivalent, (3 years or older) administered Source: New Immuniza tion Record influenza, injectable, quadrivalent, (3 years or older) administered Source: New Immuniza tion Record Pneumococcal conjugate PCV administere d Source: New Immunization Record Influenza, injectable, quadrivalent, preservative free, 3 yrs or older administered Source: New Immuniz ation Record Pneumococcal conjugate PCV 13 administere d Source: New Immunization Record Fluzone administered Note: [facility] [id number] ; Source: New Immunization Record Fluzone administered Note: [facility][id number] ; Source: New Immunization Record Fluzone administered Source: New Imm unization Record 93871 - Influenza administered Source: So urce Unspecified INFLUENZA A (H1N1) VACCINE, ANY ROUTE OF ADMIN administered Source: Source Unspe cified 69769 - Influenza administered Source: So urce Unspecified 37141 - Influenza administered Source: So urce Unspecified 75636 - Influenza administered Source: So urce Unspecified Payers Payer name Insurance type Covered constitution party ID Lluvia whitfield(s) [employer] MB [id number] [employer] MB [id number] [employer] MB [id number] [employer] MB [id number] [employer] MB [id number] [employer] MB [id number] [employer] MB [id number] [employer] MB [id number] [employer] MB [id number] [employer] MB [id number] Social History Type Description Quantity Date Captured Comments Alcohol Use Details Unknown Caffeine Use Details Unknown Tobacco Use Status No Information Smoking Status No Information Sex Male Gender Identity Male Chief Complaint And Reason For Visit No Information Reason For Referral Reason For Referral No Information Plan Of Treatment Date Type Action Status Goal Dietary manageme nt education, guidance, and counseling completed Goal Dietary manageme nt education, guidance, and counseling completed Goal Dietary manageme nt education, guidance, and counseling completed Goal Dietary manageme nt education, guidance, and counseling completed Goal Dietary manageme nt education, guidance, and counseling completed Goal Dietary manageme nt education, guidance, and counseling completed Goal Dietary manageme nt education, guidance, and counseling completed Goal Dietary manageme nt education, guidance, and counseling completed Goal Dietary manageme nt education, guidance, and counseling completed Goal Dietary manageme nt education, guidance, and counseling completed Goal Dietary manageme nt education, guidance, and counseling completed Goal Dietary manageme nt education, guidance, and counseling completed Goal Dietary manageme nt education, guidance, and counseling completed Goal Dietary manageme nt education, guidance, and counseling completed Goal Dietary manageme nt education, guidance, and counseling completed Goal Dietary manageme nt education, guidance, and counseling completed Goal Dietary manageme nt education, guidance, and counseling completed Goal Dietary manageme nt education, guidance, and counseling completed Goal Dietary manageme nt education, guidance, and counseling completed Goal Dietary manageme nt education, guidance, and counseling completed Goal Dietary manageme nt education, guidance, and counseling completed Goal Dietary manageme nt education, guidance, and counseling completed Goal Dietary manageme nt education, guidance, and counseling completed Goal Dietary manageme nt education, guidance, and counseling completed Goal Dietary manageme nt education, guidance, and counseling completed Goal Dietary manageme nt education, guidance, and counseling completed Goal Dietary manageme nt education, guidance, and counseling completed Goal Dietary manageme nt education, guidance, and counseling completed Referral Referred To: Bessie Hwang [address] [place], [phone] Ordered: Referrals: Gastroenterology. Bessie Hwang. Evaluation/diagnostic/treatment - Level 3 Appointment date/timeframe: 02/23/2024 ordered Referral Referred To: [address], [id number] Ordered: X-RAY EXAM OF LUMBAR SPINE, A/P & LAT ordered Referral Ordered: X-RAY EXAM OF RIBS, UNILATERAL, 2 VIEWS Right Right ordered Referral Referred To: [address], [id number] Ordered: CT abdomen and pelvis with IV and oral contrast Appointment date/timeframe: 03/01/2021 ordered Referral Ordered: X-RAY EXAM OF RIBS, UNILATERAL, 2 VIEWS Left ordered Referral Referred To: [address] [place], [phone] Ordered: MRI of lumbar spine without contrast Appointment date/timeframe: 10/18/2020 ordered Referral Ordered: X-RAY EXAM OF THORACIC SPINE, 2 VIEWS ordered Referral Ordered: X-RAY EXAM OF LUMBAR SPINE, 2 or 3 VIEWS ordered Referral Referred To: [place], [id number] Ordered: X-RAY EXAM OF KNEE, ONE OR TWO VIEWS Right ordered Referral Referred To: Dr. Yann Paz Ordered: Referrals: Neurology. Dr. Yann Paz. Evaluation/diagnostic/treatment - Level 3 Appointment date/timeframe: 12/23/2019 ordered Referral Referred To: [address] [place], [place], [id number] Ordered: Chest Xray, 2 Views ordered Referral Referred To: [place], [address] [phone] Ordered: Referrals: Cardiology. Veena Barron MD. Evaluation/diagnostic/treatment - Level 3 Appointment date/timeframe: 06/17/2019 ordered Referral Referred To: Kade Cortez MD [address] [facility] [place], [phone] Ordered: Referrals: Hematology Oncology. Kade Cortez MD. Evaluation/diagnostic/treatment - Level 3 Appointment date/timeframe: 04/05/2019 ordered Referral Referred To: Rosalio Swartz [address] [place], [phone] Ordered: Referrals: Ophthalmology. Rosalio Swartz. Consult - Level 1 Appointment date/timeframe: 03/27/2019 ordered Referral Referred To: Julio Hwang MD [address] [place], [phone] Ordered: Referrals: Gastroenterology. Julio Hwang MD. Consult - Level 1 Appointment date/timeframe: 05/06/2019 ordered Referral Referred To: Daxa Paz MD [address] [place], [phone] Ordered: Referrals: Neurology. Daxa Paz MD. Evaluation/diagnostic/treatment - Level 3 Appointment date/timeframe: 12/24/2018 ordered Referral Referred To: [address] [place], [phone] Ordered: CT abdomen and pelvis w contrast Bilateral abdomen/pelvis Appointment date/timeframe: 12/20/2018 ordered Referral Referred To: [address] [facility]
[address] [place], [phone] Ordered: KUB ([id number]) x-ray Appointment date/timeframe: 12/17/2018 ordered Referral Referred To: [address] [place], [phone] Ordered: CT abdomen with contrast Bilateral abdomen Appointment date/timeframe: 12/19/2018 ordered Referral Referred To: London Peacock MD [address]
[place], [phone] Ordered: Referrals: Neurology. London Peacock MD. Evaluation/diagnostic/treatment - Level 3 Appointment date/timeframe: 12/12/2018 ordered Appointment Ayad Farmer BOOKED History Of Present Illness Encounter Date Complaint History Of Prese nt Illness chronic conditions *See Chronic Conditions HPI 4 month check up Chronic Conditions *See Chronic Conditions [facility] Chronic Conditions *See Chronic Conditions [facility] 2 month Here with tricia Worthy for 2 month follow up.Is seeing GI for diffuse abdominal pain.Last saw 2 years ago.Advised to finish Carafate and continue Protonix twice a day. Recommended Senokot to daily at that time. not on sucralfate currently.[place] symptoms were IBS versus gastritis.Is alternating senna. Alternating between taking 1 and 2 tablets daily.Poor historian with regard to nausea and describing the abdominal pain.He has an upcoming appointment next week.GI - 9/16/24He has cerumen impaction of the left ear. Agreeable to ear wash. Caregiver has been using Debrox chronic conditions *See Chronic Conditions HPI chronic conditions *See Chronic Conditions HPI 4 month check up Chronic Conditions *See Chronic Conditions [facility] Chronic Conditions *See Chronic Conditions [facility] chronic conditions *See Chronic Conditions [facility] Chronic Conditions *See Chronic Conditions [facility] 1 month appt -CHFpt reports s welling of legs/ankles, chronic - stablept denies increase in SOBpt does not monitor weight at homept working on avoiding salty, fried, processed foods, adding salt to foods -Hypertensionpt denies headaches, dizziness, nausea, lightheadedness, chest pain, palpitationspt does not monitor BP at homept's caregiver verbalized pt is compliant w/ medication Other pt due for:Adv c are planning - pt does not have.Recent visits:Dr Keene - Febneftali appt:Oncology - Dr Cortez - FridayDr Valencia - Quality Controller - Friday Vaccinations due:TD/TDAP - pt denies recentOutstanding referrals:n/aQuestions:No questions Chronic Conditions *See Chronic Conditions [facility] Chronic Conditions *See Chronic Conditions [facility] 3 month Fall last nightR ib pain and shortness of breath.no fever or cough Chronic Conditions *See Chronic Conditions [facility] chronic conditions *See Chronic Conditions [facility] Other pt due for:n/aRe cent visits:n/aFuture appt:n/aRecent vaccinations:pt denies Flu, TD/tdap, ShingrixOutstanding referrals:n/a Chronic Conditions *See Chronic Conditions [facility] 3 month appt -CHFpt reports s welling of legs/ankles, and SOBpt does not monitor weight at homept working on avoiding salty, fried, processed foods, adding salt to foods -COPDpt denies cough, or increased sputum productionpt does not practice deep breathing exercises -Hypertensionpt denies headaches, dizziness, nausea, lightheadedness, chest pain, palpitationspt does not monitor BP at homept compliant w/ medication 3 month appt -Hypertensionpt reports worsening of headaches, dizziness, nausea, lightheadedness, chest pain, palpitationspt does not monitor BP at homept compliant w/ medication -COPDpt denies worsening shortness of breathpt reports worsening cough, or increased sputum productionpt not compliant w/ deep breathing exercises -CHFpt denies SOBpt reports swelling of Rt leg/ankle - pt had US doppler of lower extremities - see scanned report.pt does not monitor weight at homept complaint w/ avoiding salty, fried, processed foods, adding salt to foods Other pt due for:n/aRe cent visits:Dr Hwang - 01/04/2022ardiology - Dr Tai Valencia - 10/31/2021US Doppler - Lower extremity - 11/15/2021r Iker - Vascular - 11/21/2021Future appt:Dr Hwang - Feb 06 Podiatry - toe nail trim - SepDr Diego - Oncology - Mar 25 - Need referralDr Shahid - Neuro - Apr 11 - Need referralDr Valencia - May 06 - Need referralRecent vaccinations:COVID 2nd booster - Moderna [facility] 01/04/2022t denies TD/Tdap, ShingrixQuestions:None Chronic Conditions *See Chronic Conditions HPI 3 month appt 1 months follow up other pt. was seen by Dr. Valencia weight was 185, no testing. he took him off FurosemideDrClaudia Hwang on November 02, weight was 178 - unsure if it was accurate . follow back with Dr. Hwang on 11/21/2021went to in the vascular department. yesterday, had a doppler done yesterday, they are ordering a arterial dopplerPt. fell 4 times last week, no injuries, pt. does get dizzy.pt has fallen 9 times in the last monthright foot is discolor and swollen Chronic Conditions *See Chronic Conditions HPI 3 month f/u Sieper states AQUILINO was ordered by podiatry due to decreased pedal pulses. Chronic Conditions *See Chronic Conditions HPI Chronic Conditions *See Chronic Conditions HPI Chronic Conditions *See Chronic Conditions HPI Chronic Conditions *See Chronic Conditions HPI [place] visit Pt here with car leora Worthy after falling last night. Zaynab states pt has fallen 2 times in the last month. Pt and Zaynab state they think he lost his balance and fell hitting his anterior left chest and ribs. Pt was clammy on exam, pt states he was hot. Pt is having pain in this area and states it is a little hard to breathe. Talked with Adele WATTS. She states pt can alternate OTC Tylenol as directed and hydrocodone for pain, call with any worsening symptoms. Left ribs w/ PA chest ordered. Advised we will call with results in the next day or so. Chronic Conditions *See Chronic Conditions [facility] Chronic Conditions *See Chronic Conditions [facility] Chronic Conditions *See Chronic Conditions [facility] Chronic Conditions *See Chronic Conditions [facility] Chronic Conditions *See Chronic Conditions [facility] Chronic Conditions *See Chronic Conditions [facility] Chronic Conditions *See Chronic Conditions [facility] Chronic Conditions *See Chronic Conditions [facility] Chronic conditions f/u Chronic Conditions *See Chronic Conditions [facility] Chronic Conditions *See Chronic Conditions [facility] Chronic Conditions *See Chronic Conditions [facility] Chronic Conditions *See Chronic Conditions [facility] Chronic Conditions *See Chronic Conditions [facility] UTI sx Pt. here for RN visit with report of flank and lower abdominal pain and dysuria x 2-3 days. Pt. reports not drinking enough water daily. Denies fever, n/v/d. Pt. reports hx of kidney stones.Urine dip obtained. Pt. tolerated well. Per Robinson Burton NP pt. to take Cipro 250mg BID x 7 days, take a daily OTC probiotic while on abx. Push fluids frequently. Will send urine for cx and change tx if needed once cx results received. Make sure to take all medications as prescribed. Will get a KUB. Pt. to call if sx do not improve, worsen, or if new sx arise. Script sent to pharmacy. Pt. provided with order for KUB. Pt. voiced understanding. Weight check Dr. Abel grimm, the weight loss is good, we will call him tomorrow with his labs. Cervical pain/ Bárbara order Carole log 40mg injection and heat. Give us a call in a week to see how he is doing. Functional Status Date Functional Assessmen t No Information Instructions Date Instruction Additional Infor jerilyn I would recommend st arting a stool softener in the form of Colace 100 mg daily which can be found [id number]. Continue the senna every other day as prescribed Related to Constipation, unspecified Your parathyroid is slightly overactive due to your chronic kidney disease.We will continue to monitor this with lab work Related to Secondary hyperparathyroidism, not elsewhere classified This is increased pr essure in the lungs related to your heart failure.Call with any changes in your breathing Related to Other secondary pulmonary hypertension This is hardening of the arteries of your heart found on previous imaging.Blood pressure is well controlled.Continue your medications as prescribed Related to Atherosclerosis of aorta Continue medication as prescribed.Please call the office if the depression worsens 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, single episode, severe without psychotic features Continue medications as prescribed.Weight is improved since last visit.Follow-up with neurology as scheduled Related to Dementia in other diseases classified elsewhere, unspecified severity, with other behavioral disturbance Stable Related to 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 Continue medications as prescribed.Please call us with changes in breathing Related to Chronic obstructive pulmonary disease, unspecified Kidney function has been mildly decreased with his last 2 lab draws.This is something we will continue to monitor Related to Chronic kidney disease, stage 3a We will check your A1c again tod ay 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 Weigh yourself daily .avoid: salty foods, fried foods, processed foods, adding salt to your foods.If you notice a weight gain of 1-2 pounds in 24 hours or 3-5 pounds in 5 days call our officeKeep an eye on the swelling in your legs and your breathing Notify us of any changes Related to Chronic diastolic (congestive) heart failure Your blood pressure is well controlled today.Continue your current medications.We will check routine labs today.Please call the office with any issues, questions, or concerns prior to your next appointment.Follow up again in 4 months Related to Hypertensive heart and 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 failure, with stage 1 through stage 4 chronic kidney disease, or unspecified chronic kidney disease Giving encouragement to exercise Related to Body mass index (BMI) 28.0-28.9, adult Disease process Dietary management e ducation, guidance, and counseling Related to Body mass index (BMI) 28.0-28.9, adult Continue on hydrocod one. Narcotic agreement renewed today. Call for refills. Related to Spinal stenosis, lumbar region without neurogenic claudication Keep your scheduled follow-up with Dr. Hwang next week. Continue on the pantoprazole.Continue with the bowel regimen Related to Abdominal pain, unspecified abdominal location Try to eat smaller m ore frequent meals.Supplement with boost or Ensure.Keep your scheduled follow-up with GI on the Related to Unspecified protein-calorie malnutrition Continue on current medication and use the walker. Related to Hemiplegia and hemiparesis following cerebral infarction affecting right dominant side Continue on current medication and follow with neurology.Please call with any increased confusion.Please have son bring in POA paperwork when done Related to Dementia in other diseases classified elsewhere, unspecified severity, with other behavioral disturbance Blood pressure stabl e on current medication. No changes Related to Hypertensive heart disease with heart failure I recommend you weig h yourself daily and notify us if you gain 2 pounds in 24 hours or 3 to 5 pounds in a week.Follow a low-salt diet and monitor for any changes in swelling in your legs or breathing. Please call if you have any of the above issues. Related to Chronic diastolic (congestive) heart failure We will not start an y medications due to the weight loss.We will check A1c today.I sent a referral to Dr. 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 Valencia Related to Hyperlipidemia, unspecified Ear wash today.Call with any questions or concernsCBC, CMP, lipids, A1c todayflu shot and prevnar todayreturn in 4 months Related to Left ear impacted cerumen Disease process Giving encouragement to exercise Related to Body mass index (BMI) 27.0-27.9, adult Dietary management e ducation, guidance, and counseling Related to Body mass index (BMI) 27.0-27.9, adult as stated above Related to Weigh t loss as stated above Related to Abdom inal pain, unspecified abdominal location A1c will be checked again today Related to Impaired fasting glucose Weight is down over 13 pounds since your last visit. Continue consuming at least 2 meals a day and drinking Ensure.We will refer you back to Dr. Hwang's office given your abdominal pain and weight loss.Follow up again in 2 months Related to Unspecified protein-calorie malnutrition as stated above Related to Demen tia in other diseases classified elsewhere, unspecified severity, with other behavioral disturbance I will call tomorrow with lab results.Weigh yourself daily.avoid: salty foods, fried foods, processed foods, adding salt to your foods.If you notice a weight gain of 1-2 pounds in 24 hours or 3-5 pounds in 5 days call our officeKeep an eye on the swelling in your legs and your breathing Notify us of any changes Related to Chronic diastolic (congestive) heart failure Blood pressure is on the low end of normal today.We will check labs to determine if we will cut back on the water pill since his swelling is well controlled Related to Hypertensive heart disease with heart failure Giving encouragement to exercise Related to Body mass index (BMI) 27.0-27.9, adult Disease process Dietary management e ducation, guidance, and counseling Related to Body mass index (BMI) 27.0-27.9, adult Feb-14-[address] Rossi chavira yearly as scheduled Related to Personal history of malignant neoplasm of prostate Continue to encourag e adequate nutrition.We will continue to monitor his weight Related to Unspecified protein-calorie malnutrition Continue your sertra line as prescribed.Call us if mood worsens 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, single episode, severe without psychotic features This is hardening of the arteries of your heart found on previous imaging.Blood pressure is well controlled.Continue your medications as prescribed Related to Atherosclerosis of aorta This is increased pr essure in the lungs related to your heart failure.Call with any changes in your breathing Related to Other secondary pulmonary hypertension Follow up with neurology as alvaro gandhi Related to Hemiplegia and hemiparesis following cerebral infarction affecting right dominant side Continue medications as prescribed and follow-up with Dr. Valencia as scheduled on the Related to Angina pectoris, unspecified We will check a para thyroid level along with vitamin D with upcoming labs Related to Secondary hyperparathyroidism, not elsewhere classified A1c will be checked with next lab draw Related to Impaired fasting glucose Continue inhalers as prescribed and call with any changes breathing Related to Chronic obstructive pulmonary disease, unspecified Continue medications as prescribed.Call us with any changes Related to Dementia in other diseases classified elsewhere, unspecified severity, with other behavioral disturbance Swelling looks great today.Weigh yourself daily.avoid: salty foods, fried foods, processed foods, adding salt to your foods.If you notice a weight gain of 1-2 pounds in 24 hours or 3-5 pounds in 5 days call our officeKeep an eye on the swelling in your legs and your breathing Notify us of any changes Related to Chronic diastolic (congestive) heart failure Your blood pressure is well controlled today.Continue your current medications.lab order was given today to be drawn with Dr. Valencia' labs next monthPlease call the office with any issues, questions, or concerns prior to your next appointment.Follow up again in 4 months Related to Hypertensive heart disease with heart failure Dietary management e ducation, guidance, and counseling Related to Body mass index (BMI) 29.0-29.9, adult Giving encouragement to exercise Related to Body mass index (BMI) 29.0-29.9, adult Disease process weigh yourself daily avoid: salty foods, fried foods, processed foods, adding salt to your foods.It you notice a weight gain of 1-2 pounds in 24 hours or 3-5 pounds in 5 days call our officealso keep an eye on the swelling in your legs and your breathing. Notify us of any changes. Related to Chronic diastolic (congestive) heart failure continue with the cu rrent pain medicationcall me if the leg and back pain worsens Related to Spinal stenosis, lumbar region without neurogenic claudication call me if you feel more short of breath Related to Other secondary pulmonary hypertension your blood pressure is stableno changes recommended Related to Hypertensive heart disease with heart failure Dietary management e ducation, guidance, and counseling Related to Body mass index (BMI) 30.0-30.9, adult Disease process Prescribed activity/ exercise education Related to Body mass index (BMI) 30.0-30.9, adult keep scheduled follo w up with Neurology Related to Dementia in other diseases classified elsewhere, unspecified severity, with other behavioral disturbance labs will be checked Related to Impaired fasting glucose your blood pressure is stable no additional changes recommended Related to Hypertensive heart disease with heart failure weigh yourself daily avoid: salty foods, fried foods, processed foods, adding salt to your foods.It you notice a weight gain of 1-2 pounds in 24 hours or 3-5 pounds in 5 days call our officealso keep an eye on the swelling in your legs and your breathing. Notify us of any changes.I want you to increase the furosemide to EVERY DAYcall me next week with an update on how the swelling is doing Related to Chronic diastolic (congestive) heart failure Disease process Giving encouragement to exercise Related to Body mass index (BMI) 31.0-31.9, adult Dietary management e ducation, guidance, and counseling Related to Body mass index (BMI) 31.0-31.9, adult Continue with Seroqu el 50 mg before bedtime.Please call us with any behavioral changes Related to Dementia in other diseases classified elsewhere, unspecified severity, with other behavioral disturbance I will send a referr al to Dr. Keene to discuss further treatment options Related to Benign prostatic hyperplasia with lower urinary tract symp You're scheduled to see neurology, Dr. Chun on 12/06.Continue using your rollator when you are up and moving.No more falls! Related to Hemiplegia and hemiparesis following cerebral infarction affecting right dominant side You missed your foll ow up with Dr. Valencia in September.I sent a refill of your metoprolol to the pharmacy.Weigh yourself daily.avoid: salty foods, fried foods, processed foods, adding salt to your foods.If you notice a weight gain of 1-2 pounds in 24 hours or 3-5 pounds in 5 days call our officeKeep an eye on the swelling in your legs and your breathing Notify us of any changes Related to Chronic diastolic (congestive) heart failure Your blood pressure is well controlled today.Continue your current medications.Labs were stable in August.We will recheck labs at your next visit.Please call the office with any issues, questions, or concerns prior to your next appointment.Follow up again in 3 months Related to Hypertensive heart disease with heart failure Disease process Dietary management e ducation, guidance, and counseling Related to Body mass index (BMI) pediatric, less than 5th percentile for age Giving encouragement to exercise Related to Body mass index (BMI) pediatric, less than 5th percentile for age We will draw labs an d determine medication adjustments. Since we have not drawn a lab to rule out syphilis we will do so today. Related to Hallucinations We will obtain x-ray s of the ribs.Okay to use [id number] lidocaine patch to the area for discomfort.Call with any questions or concernsCBC, CMP, A1c, intact PTH, RPR, TSH todayReturn in 2 to 3 months Related to Rib pain on left side We will draw labs an d obtain an x-ray to rule out pneumonia.Given the fall we want him to make sure that he is taking deep breaths Related to Shortness of breath Continue with the wh eeled walker. As above regarding resources Related to Repeated falls I restarted the tolt erodine to see if this helps lessen him having to urinate as often in the evening to help prevent falls. Related to Benign prostatic hyperplasia with lower urinary tract symptoms We will keep an eye on the A1c. Related to Impaired fasting glucose He can have hydrocod one every 8 hours as needed for pain.Due to the fall, I will have him get an x-ray of the low back Related to Spinal stenosis of lumbar region without neurogenic claudication Follow with cardiolo gy as scheduled in September.Please call us if he requires nitroglycerin Related to Angina pectoris, unspecified This is hardening of the arteries of your heart found on previous imagingno chest pain.good bp control Related to Atherosclerosis of aorta You received radiati on but no longer follow with urology.I will try to help control your prostate symptoms Related to Malignant neoplasm of prostate We will check levels today Relat ed to Secondary hyperparathyroidism, not elsewhere classified This is the increase d pressure in the lungs related to your heart disease. Related to Other secondary pulmonary hypertension Continue with the enoc arguello. Continue on aspirin and clopidogrel Related to Hemiplegia and hemiparesis following cerebral infarction affecting right dominant side I recommend you weig h yourself daily and notify us if you gain 2 pounds in 24 hours or 3 to 5 pounds in a week.Follow a low-salt diet and monitor for any changes in swelling in your legs or breathing. Please call if you have any of the above issues. Related to Chronic diastolic (congestive) heart failure Continue on current medications. As above changes to be discussed tomorrow 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, single episode, severe without psychotic features We discussed this me ananya change could be related to Alzheimer's and vascular changes after his stroke.He scored 6 out of 30 on his memory test today.I will have a social service coordinator call to discuss any further resources he may benefit from.I will discuss with Dr. Roman medication adjustments and let you know recommendations tomorrow Related to Dementia with behavioral disturbance Continue with the re scue inhaler as needed. Please call us if breathing worsens Related to Chronic obstructive pulmonary disease, unspecified Blood pressure is co ntrolled on current medication Related to Hypertensive heart disease with heart failure Dietary management e ducation, guidance, and counseling Related to Body mass index (BMI) 28.0-28.9, adult Giving encouragement to exercise Related to Body mass index (BMI) 28.0-28.9, adult Disease process weigh yourself daily avoid: salty foods, fried foods, processed foods, adding salt to your foods.It you notice a weight gain of 1-2 pounds in 24 hours or 3-5 pounds in 5 days call our officealso keep an eye on the swelling in your legs and your breathing. Notify us of any changes.Status: Able to self-manage condition. Goals: Your goal is to not add salt to your food at the table. Barriers: No barriers to goal achievement have been identified. Related to Chronic diastolic (congestive) heart failure Your blood pressure is well controlled today.Continue your current medications as prescribed.Please call with questions or concerns prior to your next follow up. Related to Hypertensive heart disease with heart failure Try to be more activ e.I think you are deconditioned and it makes it harder for you to breathe with normal everyday activitiesUse your rescue inhaler as needed for shortness of breath.Status: Requires more self-management coaching. Goals: Your goal is to maintain an active life. Barriers: No barriers to goal achievement have been identified. Related to Chronic obstructive pulmonary disease, unspecified Good job using your new walkerTry to increase your activity and use your walker at all times.Please let me know if you decide you would be willing to try some physical and occupational therapy to improve your mobilityI am happy to order home physical therapy to help with this. Related to Frequent falls I will check your ri b xray todaymake sure you are taking deep breaths even though it hurts in order to prevent pneumonia Related to Pleurodynia Giving encouragement to exercise Related to Body mass index (BMI) 28.0-28.9, adult Disease process Dietary management e ducation, guidance, and counseling Related to Body mass index (BMI) 28.0-28.9, adult I will check your li kwabena function tests and your pancreatic enzymesmake sure you are staying well hydrated and try to walk as much as possible to help with your bowelsreturn to me in 3 monthscall me with questions or concernslabs checked Related to Generalized abdominal pain Try to be more activ e.I think you are deconditioned and it makes it harder for you to breathe with normal everyday activitiesUse your rescue inhaler as needed for shortness of breath.Status: Requires more self-management coaching. Goals: Your goal is to maintain an active life. Barriers: No barriers to goal achievement have been identified. Related to Chronic obstructive pulmonary disease, unspecified Your blood pressure is well controlled today.Continue your current medications as prescribed.Please call with questions or concerns prior to your next follow up. Related to Hypertensive heart disease with heart failure Good job using your new walkerTry to increase your activity and use your walker at all times.Please let me know if you decide you would be willing to try some physical and occupational therapy to improve your mobilityI am happy to order home physical therapy to help with this. Related to Frequent falls weigh yourself daily avoid: salty foods, fried foods, processed foods, adding salt to your foods.It you notice a weight gain of 1-2 pounds in 24 hours or 3-5 pounds in 5 days call our officealso keep an eye on the swelling in your legs and your breathing. Notify us of any changes.Status: Able to self-manage condition. Goals: Your goal is to not add salt to your food at the table. Barriers: No barriers to goal achievement have been identified. Related to Chronic diastolic (congestive) heart failure Giving encouragement to exercise Related to Body mass index (BMI) 29.0-29.9, adult Dietary management e ducation, guidance, and counseling Related to Body mass index (BMI) 29.0-29.9, adult Disease process Fall Risk Prevention Urinary Incontinence Please try to eat re gularly throughout the day. Try to drink boost or Ensure to increase your protein intake. Return to me as scheduled. Call me with questions or concerns. Related to Unspecified protein-calorie malnutrition Please look into a r iBiz Softwareiner chair that helps you stand up.Try to increase your activity and use your walker at all times.Please let me know if you decide you would be willing to try some physical and occupational therapy to improve your mobilityI am happy to order home physical therapy to help with this. Related to Frequent falls Your blood pressure is well controlled today.Continue your current medications as prescribed.Please call with questions or concerns prior to your next follow up. Related to Hypertensive heart disease with heart failure continue the duloxet ine to 60mg once a day 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, single episode, severe without psychotic features weigh yourself daily avoid: salty foods, fried foods, processed foods, adding salt to your foods.It you notice a weight gain of 1-2 pounds in 24 hours or 3-5 pounds in 5 days call our officealso keep an eye on the swelling in your legs and your breathing. Notify us of any changes.Status: Able to self-manage condition. Goals: Your goal is to not add salt to your food at the table. Barriers: No barriers to goal achievement have been identified. Related to Chronic diastolic (congestive) heart failure Giving encouragement to exercise Related to Body mass index (BMI) 29.0-29.9, adult Dietary management e ducation, guidance, and counseling Related to Body mass index (BMI) 29.0-29.9, adult Disease process Ultrasound was ordered by josiane mane Related to Decreased pedal pulses I will order a Ryegate tor walker today.Try to increase your activity and use your walker at all times.Please let me know if you decide you would be willing to try some physical and occupational therapy to improve your mobility Related to Frequent falls Your blood pressure is well controlled today.Continue your current medications as prescribed.We will check labs today.CBC, CMP, lipid panel, TSH, and urinalysisPlease call with questions or concerns prior to your next follow up.Follow up with Dr. 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 Goals: Your goal is to maintain an active life. Barriers: No barriers to goal achievement have been identified. Related to Chronic obstructive pulmonary disease, unspecified weigh yourself daily avoid: salty foods, fried foods, processed foods, adding salt to your foods.It you notice a weight gain of 1-2 pounds in 24 hours or 3-5 pounds in 5 days call our officealso keep an eye on the swelling in your legs and your breathing. Notify us of any changes.Status: Able to self-manage condition. Goals: Your goal is to not add salt to your food at the table. Barriers: No barriers to goal achievement have been identified. Related to Chronic diastolic (congestive) heart failure Continue the duloxet ine to 60mg once a day in addition to the sertraline.You goal is to optimize your mobility to help improve your mood.Work on getting out of the house and increasing your activity.Status: Meeting treatment plan goals. Goals: Your goal is to manage your medicine. Barriers: No barriers to goal achievement have been identified. 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, single episode, severe without psychotic features Giving encouragement to exercise Related to Body mass index (BMI) 30.0-30.9, adult Disease process Dietary management e ducation, guidance, and counseling Related to Body mass index (BMI) 30.0-30.9, adult please go back to Dr Claudia Doty will check urine today Related to Increased urinary frequency look into topical th erapies like lidocaine patchok to apply heat or icehydrocodone as neededplease move as much as possible to help prevent worsening back issuesuse the walkerCall with any questions or concernscbc, cmp, lipids, A1c, TSH, b12, intact PTH ua todayreturn in 3 months Please continue to follow COVID precautions including: wearing a mask or face covering in public, washing your hands frequently and remaining socially distant when in public. Related to Right-sided low back pain without sciatica, unspecified chronicity we will recheck tamar tanner todayfollow with Dr Keene Related to Benign prostatic hyperplasia with lower urinary tract symp Your blood pressure is well controlled todayno change in medications at this timemonitor from home and call if you notice it consistently above 140/90 Related to Hypertensive heart disease with heart failure continue the duloxet ine to 60mg once a daywe will see if decreasing the quetiapine helps with his energy levelif he gets worse then we will increase to 50mg a day at bedtime instead of 25mg once a day at bedtimeplease call meStatus: Meeting treatment plan goals. Goals: Your goal is to manage your medicine. Barriers: No barriers to goal achievement have been identified. 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 Notify us of any changes.Status: Able to self-manage condition. Goals: Your goal is to not add salt to your food at the table. Barriers: No barriers to goal achievement have been identified. Related to Chronic diastolic (congestive) heart failure this is the elevated pressures in your lungs related to your underlying heart diseaseyour breathing is stablereturn to me in 2-3 months Related to Other secondary pulmonary hypertension This is hardening of the arteries of your heart found on previous imagingno chest pain. good bp control Related to Atherosclerosis of aorta try to be more activ eI think you are deconditioned and it makes it harder for you to breathe with normal everyday activitiesrescue inhaler for you to use to see if this helpsStatus: Requires more self-management coaching. Goals: Your goal is to maintain an active life. Barriers: No barriers to goal achievement have been identified. 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 Kandice Elaine restarted the isosorbide Watch for chest pain/pressure, heart racing, shortness of breath, nausea, dizziness, sweating; call 911 if you have these symptoms Related to Angina pectoris, unspecified this is related to t he history of low vitamin Dwe will continue to monitor in the labs Related to Secondary hyperparathyroidism, not elsewhere classified Status: Requires mor e self-management coaching. Goals: Your goal is to work on healthy eating habits. No barriers to goal achievement have been identified.[id number] on health food choicesStatus: Meeting treatment plan goals. Goals: Your goal is to be active. Barriers: No barriers to goal achievement have been identified. Related to Impaired fasting glucose Giving encouragement to exercise Related to Body mass index (BMI) 30.0-30.9, adult Dietary management e ducation, guidance, and counseling Related to Body mass index (BMI) 30.0-30.9, adult Disease process we will recheck tamar dean with Dr Keene and cancer specialist Related to Benign prostatic hyperplasia with lower urinary tract symp Rest - avoid anythin g that worsens the painalternate ice/heat to the siteyou can use over the counter creams like icy/hot, blue Imu or biofreeze or 4% lidocaine pain patch or salon pasTylenol 1000mg every 8 hours Related to Dorsalgia, unspecified follow with Dr. Kandice juan as scheduled Fridaycontinue on the isosorbide Watch for chest pain/pressure, heart racing, shortness of breath, nausea, dizziness, sweating; call 911 if you have these symptoms Related to Angina pectoris, unspecified try to be more activ eI think you are deconditioned and it makes it harder for you to breathe with normal everyday activitiesI will send a rescue inhaler for you to use to see if this helpsStatus: Requires more self-management coaching. Goals: Your goal is to maintain an active life. Barriers: No barriers to goal achievement have been identified. Related to Chronic obstructive pulmonary disease, unspecified blood pressure is st ableno changesno Labs todayReturn in 3 monthsCall with any questions or concernsContinue covid precautions Related to Hypertensive heart disease with heart failure Status: Able to self -manage condition. Goals: Your goal is to limit your salt intake to 2 g sodium per day. No barriers to goal achievement have been identified. weigh yourself dailyavoid: salty foods, fried foods, processed foods, adding salt to your foods.It you notice a weight gain of 1-2 pounds in 24 hours or 3-5 pounds in 5 days call our officealso keep an eye on the swelling in your legs and your breathing. Notify us of any changes. Related to Chronic diastolic (congestive) heart failure Giving encouragement to exercise Related to Body mass index (BMI) 31.0-31.9, adult Dietary management e ducation, guidance, and counseling Related to Body mass index (BMI) 31.0-31.9, adult Giving encouragement to exercise Related to Body mass index (BMI) 31.0-31.9, adult Disease process blood pressure is stableno castro es Related to Hypertensive heart disease with heart failure Status: Able to self -manage condition. Goals: Your goal is to limit your salt intake to 2 g sodium per day. No barriers to goal achievement have been identified. weigh yourself dailyavoid: salty foods, fried foods, processed foods, adding salt to your foods.It you notice a weight gain of 1-2 pounds in 24 hours or 3-5 pounds in 5 days call our officealso keep an eye on the swelling in your legs and your breathing. Notify us of any changes. Related to Chronic diastolic (congestive) heart failure Status: Not meeting treatment plan goals. Goals: Your goal is to manage stress. 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, recurrent severe without psychotic features see abovereturn to m e in 2-3 monthscall me with questions or concernscmp cbc tsh to be checked Related to Cyst of kidney, acquired I will set up a CT s can of [facility] abdomen [facility] to look into this furthercall me in the meantime if things change or worsen in any way Related to Unspecified abdominal pain Disease process Urinary Incontinence Fall Risk Prevention Dietary management e ducation, guidance, and counseling Related to Body mass index (BMI) 32.0-32.9, adult Giving encouragement to exercise Related to Body mass index (BMI) 32.0-32.9, adult try ti increase safe ty measuresI recommend moving the nightstand as well as keeping the walker next to the bedreturn to me in 2-3 monthscall me with questions or concerns Related to Repeated falls xrays done Related to Dorsa lgia, unspecified xray doneok for pain pill as nee ded Related to Pain in right knee we will stop the ter azosin and the gabapentin to see if it helps with the dizziness Related to Orthostatic hypotension Disease process Giving encouragement to exercise Related to Body mass index (BMI) 32.0-32.9, adult Dietary management e ducation, guidance, and counseling Related to Body mass index (BMI) 32.0-32.9, adult this is the elevated pressures in your lungs related to your underlying heart diseaseyour breathing is stablereturn to me in 2-3 monthscall me with questions or concernscmp cbc tsh lipids hga1c to be checked Related to Other secondary pulmonary hypertension This is hardening of the arteries of your heart found on previous imagingno chest pain. good bp control Related to Atherosclerosis of aorta this is related to t he history of low vitamin Dwe will continue to monitor in the labs Related to Secondary hyperparathyroidism, not elsewhere classified follow with Dr. Kandice juan as scheduledcontinue on the isosorbide Related to Angina pectoris, unspecified Status: Requires mor e self-management coaching. Goals: Your goal is to work on healthy eating habits. No barriers to goal achievement have been identified.Add [id number] on health food choices Related to Impaired fasting glucose try to be more activ eI think you are deconditioned and it makes it harder for you to breathe with normal everyday activitiesI will send a rescue inhaler for you to use to see if this helpsStatus: Requires more self-management coaching. Goals: Your goal is to maintain an active life. Barriers: No barriers to goal achievement have been identified. 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 Goals: Your goal is to manage your medicine. Barriers: No barriers to goal achievement have been identified. 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, single episode, severe without psychotic features continue on the hydr ocodonecan look into 4% lidocaine patches that are over the counter for further relief Related to Spinal stenosis of lumbar region without neurogenic claudication Your blood pressure is well controlled todayno change in medications at this timemonitor from home and call if you notice it consistently above 140/90 Related to Hypertensive heart disease with heart failure weigh yourself daily avoid: salty foods, fried foods, processed foods, adding salt to your foods.It you notice a weight gain of 1-2 pounds in 24 hours or 3-5 pounds in 5 days call our officealso keep an eye on the swelling in your legs and your breathing. Notify us of any changes.Status: Able to self-manage condition. Goals: Your goal is to not add salt to your food at the table. Barriers: No barriers to goal achievement have been identified. Related to Chronic diastolic (congestive) heart failure Giving encouragement to exercise Related to Body mass index (BMI) 32.0-32.9, adult Disease process Dietary management e ducation, guidance, and counseling Related to Body mass index (BMI) 32.0-32.9, adult labs checked to look into reversible issues regarding memory lossI would call Dr. Paz and make a sooner appointment to discuss the hallucinations and other memory deficitssafety reviewedreturn to me as scheduledcall me with questions or concernscmp cbc tsh lipids b12 folate Related to Other amnesia I would recommend moy parmar physical therapy to help with the gaitthe gait is getting poor and your balance is poor due to the underlying weakness from your stroke and the chronic back issues Related to Other abnormalities of gait and mobility weigh yourself daily avoid: salty foods, fried foods, processed foods, adding salt to your foods.It you notice a weight gain of 1-2 pounds in 24 hours or 3-5 pounds in 5 days call our officealso keep an eye on the swelling in your legs and your breathing. Notify us of any changes.Status: Able to self-manage condition. Goals: Your goal is to not add salt to your food at the table. Barriers: No barriers to goal achievement have been identified. 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 Goals: Your goal is to work on healthy eating habits. No barriers to goal achievement have been identified.Add A1c Related to Impaired fasting glucose supervisor opening and picking debrox, an e arwax softenerput this in each ear a few times a dayCall with any questions or concernscbc, cmp todayflu shot todayreturn in 2 months Continue with social distancing.AVOID CROWDS, STAY 6 FEET APART FROM OTHERS OUTSIDE YOUR HOUSEHOLD, WEAR A MASK, AVOID TOUCHING YOUR FACE, AVOID UNNECESSARY TRAVEL. WASH HANDS OFTEN. CALL WITH QUESTIONS/CONCERNS Related to Left ear impacted cerumen follow with Dr. Kandice juan as scheduledcontinue on the isosorbide Related to Angina pectoris, unspecified I will increase the duloxetine to 60mg once a dayplease give 2 capsules once a day-call when you need this to be sent for a refill and we will send 60mg capsule.call us in 1 month with updateStatus: Meeting treatment plan goals. Goals: Your goal is to manage your medicine. Barriers: No barriers to goal achievement have been identified. 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 Notify us of any changes.Status: Able to self-manage condition. Goals: Your goal is to not add salt to your food at the table. Barriers: No barriers to goal achievement have been identified. Related to Chronic diastolic (congestive) heart failure try to be more activ eI think you are deconditioned and it makes it harder for you to breathe with normal everyday activitiesI will send a rescue inhaler for you to use to see if this helpsStatus: Requires more self-management coaching. Goals: Your goal is to maintain an active life. Barriers: No barriers to goal achievement have been identified. Related to Chronic obstructive pulmonary disease, unspecified continue on the hydr ocodonecan look into 4% lidocaine patches that are over the counter for further relief Related to Spinal stenosis of lumbar region without neurogenic claudication Your blood pressure is well controlled todayno change in medications at this timemonitor from home and call if you notice it consistently above 140/90 Related to Hypertensive heart disease with heart failure Disease process Dietary management e ducation, guidance, and counseling Related to Body mass index (BMI) 32.0-32.9, adult Giving encouragement to exercise Related to Body mass index (BMI) 32.0-32.9, adult blood pressure is st ableno changesreturn to me in 3 monthscall me with questions or concernscmp cbc to be checked Related to Hypertensive heart disease with heart failure chest xray will be d one - if still abnormal then we will get a chest CT scan given your history of smokingmake sure you are trying to take deep breaths multiple times throughout the daythe more you get up and move around the better Related to Cough weigh yourself daily avoid: salty foods, fried foods, processed foods, adding salt to your foods.It you notice a weight gain of 1-2 pounds in 24 hours or 3-5 pounds in 5 days call our officealso keep an eye on the swelling in your legs and your breathing. Notify us of any changes. Status: Able to self-manage condition. Goals: Your goal is to limit your salt intake to 2 g sodium per day. Related to Chronic diastolic (congestive) heart failure this is related to t he history of low vitamin Dwe will continue to monitor in the labs Related to Secondary hyperparathyroidism, not elsewhere classified refill of pain medic ation giventry to walk as much as possible while you are within the housetry to move/exercise 5 minutes a day in the beginning - it will help Related to Spinal stenosis of lumbar region without neurogenic claudication Giving encouragement to exercise Related to Body mass index (BMI) 32.0-32.9, adult Dietary management e ducation, guidance, and counseling Related to Body mass index (BMI) 32.0-32.9, adult Disease process Giving encouragement to exercise Related to Body mass index (BMI) 32.0-32.9, adult bp is stable Related to Hyper tensive heart and 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 failure, with stage 1 through stage 4 chronic kidney disease, or unspecified chronic kidney disease this is related to t he history of low vitamin Dwe will continue to monitor in the labs Related to Secondary hyperparathyroidism, not elsewhere classified chest xray will be d onemake sure you are trying to take deep breaths multiple times throughout the daythe more you get up and move around the better Related to Cough weigh yourself daily avoid: salty foods, fried foods, processed foods, adding salt to your foods.It you notice a weight gain of 1-2 pounds in 24 hours or 3-5 pounds in 5 days call our officealso keep an eye on the swelling in your legs and your breathing. Notify us of any changes. Status: Able to self-manage condition. Goals: Your goal is to limit your salt intake to 2 g sodium per day. 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, old, hemiparesis blood pressure is st ableno change in medicationreturn to me in 2 months Related to Hypertensive heart disease with chronic diastolic congestive heart failure drink more watermove around more Related to Chronic constipation refill of pain medic ation giventry to walk as much as possible while you are within the housetry to move/exercise 5 minutes a day in the beginning - it will help Related to Spinal stenosis of lumbar region without neurogenic claudication Lung sounds were dim inished on exam today.we will call you with the chest xray resultsBe sure to call us if you develop fever, chills, or shortness of breath.Follow-up in 2 monthsCall us with any issues prior to next appointment.Status: Able to self-manage condition. Goals: Your goal is to maintain an active life. Barriers: No barriers to goal achievement have been identified. Related to Chronic obstructive pulmonary disease, unspecified Dietary management e ducation, guidance, and counseling Related to Body mass index (BMI) 32.0-32.9, adult Disease process Giving encouragement to exercise Related to Body mass index (BMI) 32.0-32.9, adult Continue the senna a s prescribed.Make sure you are drinking plenty of water to stay hydrated and staying is active as possible to help with your bowels.Call if the constipation or pain worsens. Related to Chronic constipation I sent a prescriptio n for meclizine to the pharmacy.Also look into your [id number] the benefits to see if this medication is included. Related to Dizziness and giddiness Lung sounds were gloria ar on exam today.Chest x-ray showed improvement of his pneumonia.Be sure to call us if you develop fever, chills, or shortness of breath.Follow-up with Dr. Roman in September as scheduled.Call us with any issues prior to next appointment.Status: Able to self-manage condition. Goals: Your goal is to maintain an active life. Barriers: No barriers to goal achievement have been identified. Related to Chronic obstructive pulmonary disease, unspecified We will refill your hydrocodone today.Continue the medication as needed as prescribed Related to Spinal stenosis, lumbar region without neurogenic claudication Giving encouragement to exercise Related to Body mass index (BMI) 32.0-32.9, adult Dietary management e ducation, guidance, and counseling Related to Body mass index (BMI) 32.0-32.9, adult Medication management chest xray doneretur n to me in 2-3 monthscall me with questions or concernscmp cbc tsh to be [facility]flu [facility] Related to Cough weakness from the st roke is unchangedtry to walk for exercise and to help with balance Related to Hemiplegia, unspecified affecting left nondominant side Status: Able to self -manage condition. Goals: Your goal is to learn deep breathing exercises.no inhalers for now chest xray donemedication for the cough sent Related to Chronic obstructive pulmonary disease, unspecified This is hardening of the arteries of your heart found on previous imagingno chest pain. good bp control Related to Atherosclerosis of aorta this is related to t he low level of vitamin D levels will be checked Related to Secondary hyperparathyroidism, not elsewhere classified refill of the pain m edication givencontract signed Related to Spinal stenosis, lumbar region without neurogenic claudication Status: Able to self -manage condition. Goals: Your goal is to manage stress.continue with the current medication 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, recurrent, unspecified blood pressure is stableno castro es Related to Hypertensive heart and 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 failure, with stage 1 through stage 4 chronic kidney disease, or unspecified chronic kidney disease Status: Able to self -manage condition. Goals: Your goal is to limit your salt intake to 2 g sodium per day. No barriers to goal achievement have been identified. weigh yourself dailyavoid: salty foods, fried foods, processed foods, adding salt to your foods.It you notice a weight gain of 1-2 pounds in 24 hours or 3-5 pounds in 5 days call our officealso keep an eye on the swelling in your legs and your breathing. Notify us of any changes. Related to Chronic diastolic (congestive) heart failure Giving encouragement to exercise Related to Body mass index (BMI) 32.0-32.9, adult Disease process Dietary management e ducation, guidance, and counseling Related to Body mass index (BMI) 32.0-32.9, adult I will send a prescr iption to the pharmacy today for something to help with mucus production.Be sure to call the office if you develop any shortness of breath. Related to Productive cough You are not interest ed in having an x-ray of this today.Continue taking your hydrocodone as needed as prescribed.Please let me know if you are interested in receiving physical therapy to help with this and call if your pain worsens. Related to Acute pain of right shoulder We will refill your hydrocodone today.Continue this medication as needed. Related to Spinal stenosis, lumbar region without neurogenic claudication This is due to your vitamin D deficiency.We will check your parathyroid level today. Related to Secondary hyperparathyroidism Continue your pantop razole and Zantac as prescribed.Follow-up with Dr. Hwang on the as scheduled.We will send a referral today.We will check labs today to rule out any abnormalities.Please call if the pain worsens or you develop black, tarry stools. Related to Generalized abdominal pain Continue your vitami n D supplementation as prescribed.We will check your vitamin D level today. Related to Vitamin D deficiency Stable.Continue your medications as prescribed.Be sure to limit your sodium intake and call the office if you develop swelling or shortness of breath.Status: Able to self-manage condition. Goals: Your goal is to limit your salt intake to 2 g sodium per day. Barriers: No barriers to goal achievement have been identified. Related to Chronic diastolic heart failure Your blood pressure is well controlled today.Continue your current medications.We will check routine labs today.CBC, CMP, lipid panel, TSH, amylase, lipase, intact PTH, vitamin D, and urinalysis.Follow up with Dr. Roman next month as scheduled. Related to Hypertensive heart disease with heart failure Medication management Giving encouragement to exercise Related to Body mass index (BMI) 31.0-31.9, adult Dietary management e ducation, guidance, and counseling Related to Body mass index (BMI) 31.0-31.9, adult levels have stabiliz edwe will continue to monitormake sure to take the aspirin with foodreturn to me in 2-3 monthscall me with questions or concernsno labs todayflu shot at the local pharmacy or call the office to schedule in the next few weeks Related to Anemia, unspecified surgical procedure s cheduled for tomorrow with urologyhopefully it will help Related to Benign prostatic hyperplasia with lower urinary tract symptoms refill of pain medication given Related to Spinal stenosis, lumbar region without neurogenic claudication seems to be better w ith the lower dose of Sertralinestay well hydrated Related to Dizziness and giddiness Dietary management e ducation, guidance, and counseling Related to Body mass index (BMI) 32.0-32.9, adult Disease process Giving encouragement to exercise Related to Body mass index (BMI) 32.0-32.9, adult labs for dr hwang will be done Rel ated to Anemia, unspecified appt with the eye do ctor will be arrangedreturn to me as scheduledcall me with questions or concernscmp cbc tsh lipids iron studies to be checked Related to Unspecified disorder of eyelid Clearance for the ur olift procedure will be donehold your aspirin 7 days prior to the procedure Related to Benign prostatic hyperplasia with lower urinary tract symptoms we will lower the se rtraline back to 50 mg daily due to the dizziness 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, recurrent, unspecified see above Related to Dizzi ness and giddiness look and see how muc h pain medication you haveif you have enough then you can cancel your appointment next week and keep your appointment on 03/10 Related to Spinal stenosis, lumbar region without neurogenic claudication Dietary management e ducation, guidance, and counseling Related to Body mass index (BMI) 32.0-32.9, adult Disease process Giving encouragement to exercise Related to Body mass index (BMI) 32.0-32.9, adult as above Related to Weigh t loss refill of the hydroc odonereturn monthly Related to Spinal stenosis of lumbar region without neurogenic claudication fit test today.I wou ld like you to see Dr. Hwang again given the weight loss and the other symptoms.you had a ct of the abdomen last week which showed no explanation for your stomach symptoms. Related to Dark stools This is related to y our kidney diseasewe will monitor this. 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 Related to Major depression, recurrent, chronic as above Related to Lower abdominal pain Disease prevention Giving encouragement to exercise Related to Body mass index (BMI) 32.0-32.9, adult Dietary management e ducation, guidance, and counseling Related to Body mass index (BMI) 32.0-32.9, adult Disease prevention Disease prevention PSA has been stable Related to P rostate cancer keep scheduled follo w up with the Urologist Related to Hematuria, unspecified type refill of pain medic ation giventry to stay active to help with the paintry to do the exercises you learned in therapy Related to Spinal stenosis of lumbar region without neurogenic claudication weight is down a lit tle bitmake sure you are not skipping mealstry to walk more and be more active to help with your balancereturn to me in 2-3 monthscmp cbc tsh to be checked Related to Body mass index (BMI) 33.0-33.9, adult Dietary management e ducation, guidance, and counseling Related to Body mass index (BMI) 33.0-33.9, adult Disease process Disease process Giving encouragement to exercise Related to Body mass index (BMI) 33.0-33.9, adult Assessments Type Assessment Date No Information Patient Care Teams Name Effective Dates (start - stop) Status Members No Information
--- OUTSIDE RECORDS SUMMARY | 2024-09-28 18:22 | XMS_ITS | Clinical Summary ---
Author Organization [facility] Address [address] [place] [address] Care Team Providers Care [employer] Log[employer] Coordinator Name Role Phone Debora Roman DO Primary Care Provider [phone] Tai Valencia MD Unavailable [phone] Allergies No known active allergies Medications pantoprazole 40 MG tablet Take 1 tablet (40 mg total) by mouth 2 (two) times a day. 30 tablet 03/09/2018 Active atorvastatin 40 MG tablet Take 1 tablet (40 mg total) by mouth every evening. 30 tablet 03/09/2018 Active hydrocodone-amaury taminophen 5-325 MG tablet Take 1 tablet by mouth 2 (two) times daily. 0 03/09/2018 Active Sennosides 25 MG Tab Take 2 tablets by mouth daily. 120 tablet 03/09/2018 Active probiotic capsule Take 1 capsule by mouth daily with breakfast. Active guaiFENesin 400 MG Tab Take 1 tablet by mouth 3 (three) times daily. Active clopidogrel 75 MG tablet Take 75 mg by mouth daily. 02/15/2021 Active QUEtiapine 25 MG tablet Take 25 mg by mouth every 8 (eight) hours. 09/15/2021 Active sertraline 100 MG tablet Take 100 mg by mouth in the morning. 09/28/2021 Active aspirin EC 81 MG tablet Take 1 tablet (81 mg total) by mouth in the morning. 10/31/2021 Active memantine (NAMENDA) 10 MG tablet Take 0.5 tablets (5 mg total) by mouth daily. 03/10/2023 Active albuterol sulfate HFA 108 (90 Base) MCG/ACT inhaler Inhale 2 puffs into the lungs. Active DULoxetine (CYMBALTA) 30 MG capsule Take 2 capsules (60 mg total) by mouth daily. 05/26/2023 Active vitamin D2, ergocalciferol, (DRISDOL) 1.25 mg capsule Take 1 capsule (1.25 mg total) by mouth once a week. 07/08/2023 Active metoprolol succinate ER (TOPROL-XL) 25 MG 24 hr tablet Take 1 tablet (25 mg total) by mouth nightly at bedtime. 90 tablet 02/16/2024 Active furosemide (LASIX) 20 MG tablet TAKE 1 TABLET BY MOUTH EVERY DAY 90 tablet 07/26/2024 Active donepezil (ARICEPT) 5 MG Tab Take 1 tablet (5 mg total) by mouth nightly at bedtime. 07/20/2024 Active mirabegron ER (MYRBETRIQ) 50 MG 24 hr tablet 08/16/2024 Act km clotrimazole-be tamethasone (LOTRISONE) cream APPLY TO AFFECTED AREA ON FEET TWICE A DAY 04/14/2024 Active Active Problems Problem Noted Date Diagnosed Date Dementia with behavioral disturbance 09/09/2022 Atherosclerosis of [place] ar kate of both lower extremities with intermittent claudication 11/14/2021 Overview (08/11/2023): Last Assessment & Plan: Lower extremity edema has significantly improved with [...] Can follow-up with the vascular as needed. Atherosclerosis of aorta 04/02/2021 Carcinoma of prostate ([facility] HHS/HCC) 04/02/20 21 Cervical radiculopathy 04/02/2021 Chronic diastolic heart failure ([facility] H[facility]/HCC ) 04/02/2021 Chronic obstructive pulmonar y disease, unspecified ([facility] HHS/HCC) 04/02/2021 Postural dizziness 04/02/2021 CVA, old, hemiparesis ([facility]) 04/02/20 21 Hypertensive heart and chron ic kidney disease without heart failure, with stage 1 through stage 4 chronic kidney disease, or unspecified chronic kidney disease 04/02/2021 Hypertensive heart disease w ith congestive heart failure ([facility]) 04/02/2021 Secondary hyperparathyroidism ([facility]) 04/02/20 21 Vitamin D deficiency 04/02/2021 Solitary pulmonary hypertension ([facility] ) 07/12/2020 Memory impairment 05/09/2020 Dyslipidemia 12/22/2019 Hemiplegia affecting left no ndominant side ([facility]) 06/21/2019 Sinus tachycardia 06/11/2019 RBBB (right bundle branch block) 06/11/2019 Essential hypertension 03/10/2018 Class 2 obesity due to exces s calories without serious comorbidity with body mass index (BMI) of 35.0 to 35.9 in adult 03/10/2018 Use of cane as ambulatory aid 03/10/2018 History of falling 03/10/2018 Prostate cancer ([facility]) 03/10/2018 Abnormal EKG 03/10/2018 Abnormal gait 03/10/2018 Centrilobular emphysema ([facility]) 2017 Former smoker 03/10/2018 On statin therapy 03/10/2018 Antiplatelet or antithrombotic long-term use 07/2017 Benign prostatic hyperplasia 10/01/2012 Hyperlipidemia 10/01/2012 POPE (dyspnea on exertion) Chest pain Resolved Problems Problem Noted Date Diagnosed Date Resolved Date Orthostatic hypotension 07/2017 Encounters Date Type Department Care Team Description 08/18/2024 2:00 PM CDT Office Visit [facility] [place], [address] [address] Tai Valencia MD Follow Up; Hypertension (6 month) 08/18/2024 Travel 07/22/2024 Telephone [facility] [place], [facility] [address] [place] [address] Brandi Ignacio, 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 Results from Last 3 Months Immunizations Immunization Administration Dates Next Due Fluzone High Dose - >Age 65 (Prefilled Syringe) 07/20/2019 Influenza (Generic) 03/04/2013 Influenza Adult (Generic) 02/23/2020,,05/18/2015,2013 MODERNA COVID-19 (12+) MRNA, LNP-S, PF, 100 MCG/ 0.5 ML DOSE 01/04/2022,04/13/2021,08/11/2020,2020 Pneumococcal (Pneumovax 23) 03/26/2016 Pneumococcal (Prevnar 13) 05/18/2015,05/19/2014 Shingrix 04/18/2023,02/04/2023 Zoster (Zostavax) 16271 Unt/0.65Ml 07/05/2015 Family History Medical History Relation Comments Heart Attack Father Prostate Cancer Father Stroke Father Stroke Mother Relation Status Comments Brother 1 Alive Brother 2 Alive Brother 3 Alive Father (Age 88) Mother (Age 85) Sister (Age 59) Social History Tobacco Use Types Packs/Day Years Used Date Smoking Tobacco: Former Cigarettes Q uit: 06/2016 Smokeless Tobacco: Never Tobacco Cessation:Counseling Given: Not Answered Alcohol Use Standard Drinks/Week Comments No 0 [...] 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 Not on file Not on file Last Filed Vital Signs Vital Sign Reading Time Taken Comments Blood Pressure 116/62 02/16/2024 1:15 PM CDT Pulse 83 08/18/2024 2:10 PM CDT Temperature 36.2 C (97.2 F) 06/05/2021 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 Respiratory Rate 16 06/05/2021 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 Oxygen Saturation 94% 08/18/2024 2:10 PM CDT Inhaled Oxygen Concentration - - Weight 83 kg (183 lb) 08/18/2024 2:10 PM CDT Height 167.6 cm (5' 6 ) 08/18/2024 2:10 PM CDT Body Mass Index 29.54 08/18/2024 2:10 PM CDT Plan of Treatment Upcoming Encounters Date Type Department Care Team (Late st Contact Info) Description 05/23/2025 2:00 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 Office Visit [facility] [facility], [facility] [address] [place] [address] Brandi Ignacio, [employer] [facility] [address] [place] [address] Health Maintenance Due Date Last Done Comments ASCVD Statin 1940 DTaP, Tdap and Td Vaccines (1 - Tdap) 1959 Annual Medicare Wellness Visit 10/26/2003 COVID-19 Vaccine ( season) 2024 04/14/2024, 04/02/2023, 01/04/2022, Additional history exists Zoster Vaccines Completed 04/18/2023, 01/08, 07/05/2015 Pneumococcal Vaccine: 50+ Years Completed 02/19/2024, 03/26/2016, 05/18/2015, Additional history exists RSV Immunization or 60+ Years Completed 04/14/2024 Meningococcal B Vaccine Aged Out No l onger eligible based on patient's age to complete this topic Meningococcal Vaccine Aged Out No afshan rusty eligible based on patient's age to complete this topic RSV Immunizations Under 20 Months Aged Out No longer eligible based on patient's age to complete this topic Procedures Procedure Name Priority Date/Time Associated Diagnosis Comments COMPREHENSIVE METABOLIC PANEL Routine 07/20/2024 HEMOGLOBIN, GLYCOSYLATED Routine 07/20/2024 LIPID PANEL Routine 07/20/2024 THYROID STIM HORMONE TSH Routine 07/20/2024 from Last 3 Months Results * COMPREHENSIVE METABOLIC PANEL (07/20/2024) SODIUM S/P/B 141 POTASSIUM S/P/B 5.1 CO2 25 CHLORIDE S/P/B 108 GLUCOSE 94 mg/dL CALCIUM S/P/B 9.8 BUN 16 CREATININE S/P/B 1.18 0.7 - 1.3 GFR ESTIMATE 60 ALKALINE PHOSPHATASE S/P/B 61 ALT 53 AST 60 BILIRUBIN TOTAL S/P/B 0.6 ALBUMIN S/P/B 4.6 3.5 - 5.0 TOTAL PROTEIN S/P/B 7.5 GLOBULIN 2.9 07/20/2024 us Default History Genericprovider LABORATORY Edited Result - Final * LIPID PANEL (07/20/2024) Pathologist [facility] CHOLESTEROL 131 HDL 42 TRIGLYCERIDES 159 LDL (CALCULATED) 57 07/20/2024 Default History Genericprovider LABORATORY Edited Result - Final * HEMOGLOBIN, GLYCOSYLATED (07/20/2024) Pathologist [facility] HGB A1C 5.9 % 07/20/2024 Default History Genericprovider LABORATORY Edited Result - Final * THYROID STIM HORMONE TSH (07/20/2024) Pathologist [facility] TSH 1.64 Default History Genericprovider LABORATORY Final Result from Last 3 Months Insurance [employer] Care Teams International Logistics Coordinator Relationship Specialty Start Date End Date Debora Roman DO [address] [place] [id number] PCP - General INTERNAL MEDICINE 02/18/18 Tai Valencia MD [facility]. [facility] [address] [place], [place] [id number] [place] [facility] CARDIOVASCULAR DISEASE 06/09/19
== END 2024-09-28 16:57 | disposition home or self-care (01) ==
PROVIDERS: PCP Internal Medicine; Visit Provider Psychiatry & Neurology Neurology
DX: I65.23 Occlusion and stenosis of bilateral carotid arteries (principal); F03.90 Unspecified dementia, unspecified severity, without behavioral disturbance, psychotic disturbance, mood disturbance, and anxiety; Z86.73 Personal history of transient ischemic attack (TIA), and cerebral infarction without residual deficits
CPT/HCPCS: 93880